=== PATIENT | male | born 1965 | race Caucasian/White ===

== ENCOUNTER 2019-07-26 07:45 | Emergency (ER) | payer OTHER ==
[~2019-07-26] VITALS: Ht 185.4 cm; Wt 104.3 kg
--- OUTSIDE RECORDS SUMMARY | ~2019-07-26 | XMS | Encounter Summary ---
Demographics + + + | Address | [address] | | | [place] [address] | + + + | Home Phone | | + + + | Preferred Language | Unknown | + + + | Marital Status | | + + + | Moravian Affiliation | Unknown | + + + | Race | Unknown | + + + | Ethnic Group | Unknown | + + + Author + + + | Author | [facility] | | | and [place] | + + + | Organization | [facility] | | | and [place] | + + + | Address | Unknown | + + + | Phone | Unavailable | + + + Support + + +---------+ + | Name | Relationship | Address | Phone | + + +---------+ + | Tiffany [place] | ECON | Unknown | | + + +---------+ + Care Team Providers + +------+ + | Care Medical Reception Name | Role | Phone | + +------+ + | Parth Vivas | PCP | | | MD | | | + +------+ + Encounter Details +--------+ + + + + | Date | Type | Department | Care Team | Description | +--------+ + + + + | 11/14/ | Orders Only | [facility] | Conversion | | | 2017 | | CONVERSION DEP [address] | Transaction, | | | | | [address] | Provider Unknown | | | | | [place] | | | | | | [phone] | (Fax) | | | | | [phone] | | | +--------+ + + + + Social History + +-------+ +--------+------+ | Tobacco Use | Types | Packs/Day | Years | Date | | | | | Used | | + +-------+ +--------+------+ | Never Assessed | | | | | + +-------+ +--------+------+ + + + | Sex Assigned at | Date Recorded | | | | + + + | Not on file | | + + + + + + + | Job Start Date | Occupation | Industry | + + + + | Not on file | Not on file | Not on file | + + + + + + + + | Travel History | Travel Start | Travel End | + + + + + + | No recent travel history available. | + + documented as of this encounter Plan of Treatment Not on filedocumented as of this encounter Visit Diagnoses Not on filedocumented in this encounter"
--- OUTSIDE RECORDS SUMMARY | ~2019-07-26 | XMS | Encounter Summary ---
Demographics + + + | Address | [address] | | | [place] [address] | + + + | Home Phone | | + + + | Preferred Language | Unknown | + + + | Marital Status | | + + + | Yazidism Affiliation | Unknown | + + + | Race | Unknown | + + + | Ethnic Group | Unknown | + + + Author + + + | Author | [facility] | | | and [place] | + + + | Organization | [facility] | | | and [...] Team Providers + +------+ + | Care Night Guard Name | Role | Phone | + +------+ + PCP | Unavailable | + +------+ + Encounter Details +--------+ + + + + | Date | Type | Department | Care Team | Description | +--------+ + + + + | 11/14/ | Hospital | [facility] | Conversion | Low back pain, | | 2017 | Encounter | [facility] | Transaction, | unspecified back | | | | [address] | Provider Unknown | pain laterality, | | | | [place], [place] | [phone] | unspecified | | | | [address] | | chronicity, with | | | | [phone] | Bryan Rainey DO | sciatica presence | | | | | [address] | unspecified | | | | | [place] [address] | | | | | | [phone] | | | | | | | | +--------+ + + + [...] + + documented as of this encounter Medications at Time of Discharge + + + +---------+ + + | Medication | Sig | Dispensed | Refills | Start | End Date | | | | | | Date | | + + + +---------+ + + | aspirin 81 MG | Take 81 mg by mouth | | 0 | 11/15/19 | | | tablet | daily. | | | 17 | | + + + +---------+ + + | metFORMIN | Take 750 mg by mouth | | 0 | 11/15/19 | | | (GLUCOPHAGE-XR) 750 | daily with dinner. | | | 17 | | | mg 24 hr tablet | | | | | | + + + +---------+ + + | | Take 1 tablet by | | 0 | 11/15/19 | | | olmesartan-hydrochlo | mouth daily. | | | 17 | | | rothiazide (BENICAR | | | | | | | HCT) 40-12.5 MG per | | | | | | | tablet | | | | | | + + + +---------+ + + documented as of this encounter Plan of Treatment Not on filedocumented as of this encounter Procedures + +--------+ + + + | Procedure Name | Priori | Date/Time | Associated Diagnosis | Comments | | | ty | | | | + +--------+ + + + | XR LUMBAR SPINE 2 OR | Routin | 11/14/2016 | | Results for this | | 3 VW | e | 4:46 PM | | procedure are in the | | | | PDT | | results section. | + +--------+ + + + documented in this encounter Results XR Lumbar Spine 2 or 3 Vw (11/14/2016 4:46 PM PDT) + + | Specimen | + + | | + + + + + | Impressions | Performed At | + + + | 1. 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 Correlate clinically | | + + + + + + | Narrative | Performed At | + + + | [facility] LUMBAR SPINE LIMITED 2-3 VIEW 11/14/2016 4:46 PM | | | HISTORY: 51 years. Male. Low back pain TECHNIQUE: XR | | | LUMBAR SPINE LIMITED 2-3 VIEW. Lateral view in flexion and extension. | | | Total of 2 images presented for interpretation. COMPARISON: | | | Images from an outside facility 09/14/2015 FINDINGS: Spondylolysis | | | and spondylolisthesis at the L5/S1 level again noted. Flexion = 23 mm. | | | Extension = 24 mm. The remainder of the lower thoracic and lumbar | | | spine as visualized have preservation of height and alignment. | | + + + + + | Procedure Note | + + | Romel Tran Conversion - 02/21/2019 4:29 AM PDT [facility] NAILS LUMBAR SPINE LIMITED | | 2-3 VIEW11/14/2016 4:46 PM HISTORY:51 years. Male. Low back pain TECHNIQUE:XR LUMBAR | | SPINE LIMITED 2-3 VIEW. Lateral view in flexion and extension. Total of 2 images | | presented for interpretation. COMPARISON:Images from an outside facility 09/14/2015 | | FINDINGS:Spondylolysis and spondylolisthesis at the L5/S1 level again noted. Flexion = | | 23 mm. Extension = 24 mm. The remainder of the lower thoracic and lumbar spine as | | visualized have preservation of height and alignment.IMPRESSION: 1. Spondylolysis with | | spondylolisthesis at the L5/S1 level with minimal interval change between the studies | | labeled flexion and extension. Correlate clinically | |COMPARISON: | |Images from an outside facility 09/14/2015 | | | |FINDINGS: | |Spondylolysis and spondylolisthesis at the L5/S1 level again noted. Flexion = 23 mm. Extens ion = 24 mm. The remainder of the lower thoracic and lumbar spine as visualized have preserv ation of height and alignment. | |IMPRESSION: | |1. 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 Correlate clinically | | | | | | | | | + + documented in this encounter Visit Diagnoses + + | Diagnosis | + + | Low back pain, unspecified back pain laterality, unspecified chronicity, with sciatica | | presence unspecified | + + documented in this encounter"
--- OUTSIDE RECORDS SUMMARY | ~2019-07-26 | XMS | Encounter Summary ---
Demographics + + + | Address | [address] | | | [place] [address] | + + + | Home Phone | | + + + | Preferred Language | Unknown | + + + | Marital Status | | + + + | Jain Affiliation | Unknown | + + + | Race | Unknown | + + + | Ethnic Group | Unknown | + + + Author + + + | Author | [facility] | | | and [place] | + + + | Organization | [facility] | | | and [...] Team Providers + +------+ + | Care Event Specialist Name | Role | Phone | + +------+ + PCP | Unavailable | + +------+ + Encounter Details +--------+ + + + + | Date | Type | Department | Care Team | Description | +--------+ + + + + | 01/05/ | Hospital | [facility] | Conversion | Acquired | | 2019 | Encounter | [facility] | Transaction, | spondylolisthesis of | | | | [address] | Provider Unknown | lumbosacral region | | | | [place], [place] | | | | | | [address] | (Fax) | | | | | [phone] | Herbert Borjas MD | | | | | | [address] | | | | | | [place], | | | | | | [place] [address] | | | | | | [phone] | | | | | | | | +--------+ + + + + Social History + +-------+ +--------+------+ | Tobacco Use | Types | Packs/Day | Years | Date | | | | | Used | | + +-------+ +--------+------+ | Former Smoker | | 0.25 | | | + +-------+ +--------+------+ + [...] + + + +---------+ + + | diazePAM (VALIUM) | /2 to 1 tab 30 | 4 | 0 | 11/16/19 | | | 10 MG tablet | minutes prior to MRI | tablet | | 19 | | | | scan. | | | | | + + + +---------+ + + | | Take 1 tablet by | | 0 | 11/14/19 | | | losartan-hydrochloro | mouth daily. | | | 18 | | | thiazide (HYZAAR) | | | | | | | 100-12.5 MG per | | | | | [...] + + + +---------+ + + | traMADol (ULTRAM) | Take 1 tablet by | 60 | 2 | 11/16/19 | | | 50 mg tablet | mouth 2 (two) times | tablet | | 19 | | | | daily. | | | | | + + + +---------+ + + | gabapentin | Take 1 capsule by | 90 | 5 | 11/16/19 | | | (NEURONTIN) 300 mg | mouth 2 (two) times | capsule | | 19 | 9 | | capsule | daily. | | | | | + + + +---------+ + + | traMADol (ULTRAM) | Take 1 tablet by | 120 | 0 | 12/31/19 | | | 50 mg tablet | mouth every 6 (six) | tablet | | 17 | 9 | | | hours as needed for | | | | | | | Pain. | | | | | + + + +---------+ + + documented as of this encounter Plan of Treatment Not on filedocumented as of this encounter Procedures + +--------+ + + + | Procedure Name | Priori | Date/Time | Associated Diagnosis | Comments | | | ty | | | | + +--------+ + + + | MRI LUMBAR SPINE WO | Routin | 01/05/2019 | | Results for this | | CONTRAST | e | 10:43 AM | | procedure are in the | | | | PDT | | results section. | + +--------+ + + + documented in this encounter Results MRI Lumbar Spine wo Contrast (01/05/2019 10:43 AM PDT) + + | Specimen | + + | | + + + + + | Impressions | Performed At | + + + | 1. Bilateral L5 pars defects. Anterolisthesis of L5 on S1 | | | measuring 1.3 cm. 2. Severe neural foraminal narrowing at bilateral | | | L5-S1. 3. No significant spinal canal stenosis. 4. Other findings as | | | described. Signed by: Leopoldo Broussard, Sinan Sign Date/Time: 01/05/2019 | | | 3:00 PM | | + + + + + + | Narrative | Performed At | + + + | MRI LUMBAR SPINE WITHOUT CONTRAST CLINICAL INFORMATION: Low back | | | pain radiating into right leg. COMPARISON: 01/05/2018 PROCEDURE: | | | Sagittal T2, axial T2, sagittal T1, axial T1, sagittal STIR sequences. | | | FINDINGS: Conus and imaged portions of the caudal cord: No abnormal | | | signal of the terminal spinal cord. Lumbar disc levels: T11-T12 | | | through L2-L3 levels are unremarkable with no spinal canal stenosis | | | or neural foraminal stenosis. L3-4: Mild posterior broad-based disc | | | protrusion. No spinal canal stenosis. No neural foraminal | | | stenosis. Facet joints are normal. L4-5: Intervertebral disc | | | desiccation. Broad-based posterior disc protrusion. No spinal | | | canal stenosis. Bilateral mild neural foraminal narrowing. L5-S1: | | | Advanced disc degeneration at the L5-S1 level. There is | | | anterolisthesis of L5 on S1 measuring 1.3 cm. Bilateral severe | | | neural foraminal narrowing. Degenerative endplate edema. | | | Bilateral L5 pars defects. | | + + + + + | Procedure Note | + + | Marc, Rad Conversion - 02/19/2019 11:54 PM PDT MRI LUMBAR SPINE WITHOUT CONTRAST | | CLINICAL INFORMATION: | | Low back pain radiating into right leg. | | COMPARISON: | | 01/05/2018 | | PROCEDURE: | | Sagittal T2, axial T2, sagittal T1, axial T1, sagittal STIR sequences. | | FINDINGS: | | Conus and imaged portions of the caudal cord: No abnormal signal of the | | terminal spinal cord. | | Lumbar disc levels: | | T11-T12 through L2-L3 levels are unremarkable with no spinal canal | | stenosis or neural foraminal stenosis. | | L3-4: Mild posterior broad-based disc protrusion. No spinal canal | | stenosis. No neural foraminal stenosis. Facet joints are normal. | | L4-5: Intervertebral disc desiccation. Broad-based posterior disc | | protrusion. No spinal canal stenosis. Bilateral mild neural foraminal | | narrowing. | | L5-S1: Advanced disc degeneration at the L5-S1 level. There is | | anterolisthesis of L5 on S1 measuring 1.3 cm. Bilateral severe neural | | foraminal narrowing. Degenerative endplate edema. Bilateral L5 pars | | defects. | | IMPRESSION: | | 1. Bilateral L5 pars defects. Anterolisthesis of L5 on S1 measuring | | 1.3 cm. | | 2. Severe neural foraminal narrowing at bilateral L5-S1. | | 3. No significant spinal canal stenosis. | | 4. Other findings as described. | | Signed by: Leopoldo Broussard, Sinan | | Sign Date/Time: 01/05/2019 3:00 PM | + + documented in this encounter Visit Diagnoses + + | Diagnosis | + + | Acquired spondylolisthesis of lumbosacral region Acquired spondylolisthesis | + + documented in this encounter"
--- OUTSIDE RECORDS SUMMARY | ~2019-07-26 | XMS | Encounter Summary ---
Demographics + + + | Address | [address] | | | [place] [address] | + + + | Home Phone | | + + + | Preferred Language | Unknown | + + + | Marital Status | | + + + | Alevism Affiliation | Unknown | + + + | Race | Unknown | + + + | Ethnic Group | Unknown | + + + Author + + + | Author | [facility] | | | and [place] | + + + | Organization | [facility] | | | [...] Team Providers + +------+ + | Care Soil Technician Name | Role | Phone | + +------+ + PCP | Unavailable | + +------+ + Encounter Details +--------+ + + + + | Date | Type | Department | Care Team | Description | +--------+ + + + + | 01/05/ | Hospital | [facility] | Conversion | Lumbar | | 2018 | Encounter | [facility] [address] | Transaction, | radiculopathy; Pars | | | | [address] | Provider Unknown | defect of lumbar | | | | [place], [place] | [phone] | spine; | | | | [address] | | Spondylolisthesis of | | | | [phone] | Danish Mcintyre ARNP | lumbar region | | | | | [address] [facility] | | | | | | B [place], [place] | | | | | | [address] | | | | | | | [...] | + +--------+ + + + | CT LUMBAR SPINE WO | Routin | 01/05/2018 | | Results for this | | CONTRAST | e | 3:32 PM | | procedure are in the | | | | PDT | | results section. | + +--------+ + + + documented in this encounter Results CT Lumbar Spine wo Contrast (01/05/2018 3:32 PM PDT) + + | Specimen | + + | | + + + + + | Impressions | Performed At | + + + | 1. Bilateral L5 pars defects with grade 2 (12 mm) anterolisthesis | | | of L5 on S1 and advanced disc degeneration. Severe bilateral L5-S1 | | | neural foraminal stenosis with probable impingement of exiting L5 | | | nerve roots bilaterally. 2. Grade 1 (5 mm) retrolisthesis of L4 on | | | L5. Moderate bilateral L4-L5 neural foraminal stenosis. 3. Fusiform | | | infrarenal abdominal aortic aneurysm with maximum diameter measuring | | | 2.8 x 2.7 cm. Recommend attention on follow-up imaging with ultrasound | | | in 3 years. 4. Small bilateral adrenal nodules, incompletely | | | characterized, possible adenomas. Correlate for history of known | | | malignancy. Adrenal protocol MRI can be considered for further | | | evaluation. 5. Small (3 mm) nonobstructive right renal stone. | | | | | + + + + + + | Narrative | Performed At | + + + | [facility] Quiroga [facility] CT LUMBAR SPINE WO CONTRAST 01/05/2018 3:32 PM | | | HISTORY: 52 years. Male. Back pain. Spondylolisthesis. | | | TECHNIQUE: Axial 1.25-mm noncontrast images were acquired from T11-12 | | | through the sacrum. Coronal and sagittal reconstructions were | | | performed. Dose reduction techniques were used including automated | | | exposure control (AEC), iterative reconstruction technique, and/or | | | mA and/or kV dose adjustments based on patient size. | | | COMPARISON: MRI dated 11/14/2016. FINDINGS: No acute fracture. | | | Chronic posterior wedging of L5 vertebral body. Bilateral L5 pars | | | defects with grade 2 (12 mm) anterolisthesis of L5 on S1. Grade 1 (5) | | | retrolisthesis of L4 on L5. T11-12: Small Schmorl nodes. Small | | | right foraminal disc protrusion with mild right neural foraminal | | | stenosis. The right neural foramen is incompletely imaged. No spinal | | | canal or left neural foraminal stenosis. T12-L1: No spinal canal | | | or neural foraminal stenosis. L1-L2: No spinal canal or neural | | | foraminal stenosis. L2-L3: No spinal canal or neural foraminal | | | stenosis. L3-L4: Mild bilateral facet joint osteoarthritis. Mild | | | diffuse disc bulge. Mild spinal canal and mild bilateral neural | | | foraminal stenosis. L4-L5: Mildly decreased intervertebral disc | | | height. Mild diffuse disc bulge. Bilateral facet joint osteoarthritis. | | | Minimal spinal stenosis. Moderate bilateral neural foraminal | | | stenosis. L5-S1: Advanced disc degeneration with disc height loss | | | and vacuum disc. No spinal canal stenosis. Severe bilateral neural | | | foraminal stenosis. Bilateral facet joint osteoarthritis. | | | Aortobiiliac atherosclerosis. Fusiform infrarenal abdominal aortic | | | aneurysm with maximum diameter measuring approximately 2.8 x 2.7 cm. | | | Left adrenal nodule measuring approximately 1.4 x 1.1 cm, | | | incompletely characterized. Nodular thickening of right adrenal gland. | | | Small right adrenal nodule measuring approximately 8 x 9 mm, image | | | 8/series 2, incompletely catheterized. Small (3 mm) | | | nonobstructive stone in upper pole of the right kidney. | | + + + + + | Procedure Note | + + | Marc, Rad Conversion - 02/20/2019 12:51 PM PDT MARCELINA A TASSIECT LUMBAR SPINE WO | | CONTRAST01/05/2018 3:32 PM HISTORY:52 years. Male. Back pain. Spondylolisthesis. | | TECHNIQUE:Axial 1.25-mm noncontrast images were acquired from T11-12 through the sacrum. | | Coronal and sagittal reconstructions were performed. Dose reduction techniques were | | used including automated exposure control (AEC), iterative reconstruction technique, | | and/or mA and/or kV dose adjustments based on patient size. COMPARISON:MRI dated | | 11/14/2016. FINDINGS:No acute fracture. Chronic posterior wedging of L5 vertebral body. | | Bilateral L5 pars defects with grade 2 (12 mm) anterolisthesis of L5 on S1. Grade 1 (5) | | retrolisthesis of L4 on L5. T11-12: Small Schmorl nodes. Small right foraminal disc | | protrusion with mild right neural foraminal stenosis. The right neural foramen is | | incompletely imaged. No spinal canal or left neural foraminal stenosis. T12-L1: No | | spinal canal or neural foraminal stenosis. L1-L2: No spinal canal or neural foraminal | | stenosis. L2-L3: No spinal canal or neural foraminal stenosis. L3-L4: Mild bilateral | | facet joint osteoarthritis. Mild diffuse disc bulge. Mild spinal canal and mild | | bilateral neural foraminal stenosis. L4-L5: Mildly decreased intervertebral disc height. | | Mild diffuse disc bulge. Bilateral facet joint osteoarthritis. Minimal spinal stenosis. | | Moderate bilateral neural foraminal stenosis. L5-S1: Advanced disc degeneration with | | disc height loss and vacuum disc. No spinal canal stenosis. Severe bilateral neural | | foraminal stenosis. Bilateral facet joint osteoarthritis. Aortobiiliac atherosclerosis. | | Fusiform infrarenal abdominal aortic aneurysm with maximum diameter measuring | | approximately 2.8 x 2.7 cm. Left adrenal nodule measuring approximately 1.4 x 1.1 cm, | | incompletely characterized. Nodular thickening of right adrenal gland. Small right | | adrenal nodule measuring approximately 8 x 9 mm, image 8/series 2, incompletely | | catheterized. Small (3 mm) nonobstructive stone in upper pole of the right kidney. | | IMPRESSION: 1. Bilateral L5 pars defects with grade 2 (12 mm) anterolisthesis of L5 on | | S1 and advanced disc degeneration. Severe bilateral L5-S1 neural foraminal stenosis with | | probable impingement of exiting L5 nerve roots bilaterally.2. Grade 1 (5 mm) | | retrolisthesis of L4 on L5. Moderate bilateral L4-L5 neural foraminal stenosis.3. | | Fusiform infrarenal abdominal aortic aneurysm with maximum diameter measuring 2.8 x 2.7 | | cm. Recommend attention on follow-up imaging with ultrasound in 3 years.4. Small | | bilateral adrenal nodules, incompletely characterized, possible adenomas. Correlate for | | history of known malignancy. Adrenal protocol MRI can be considered for further | | evaluation.5. Small (3 mm) nonobstructive right renal stone. | |Aortobiiliac atherosclerosis. Fusiform infrarenal abdominal aortic aneurysm with maximum di ameter measuring approximately 2.8 x 2.7 cm. | | | |Left adrenal nodule measuring approximately 1.4 x 1.1 cm, incompletely characterized. Nodul ar thickening of right adrenal gland. Small right adrenal nodule measuring approximately 8 x 9 mm, image 8/series 2, incompletely catheterized. | | | | | |Small (3 mm) nonobstructive stone in upper pole of the right kidney. | | | |IMPRESSION: | |1. Bilateral L5 pars defects with grade 2 (12 mm) anterolisthesis of L5 on S1 and advanced disc degeneration. Severe bilateral L5-S1 neural foraminal stenosis with probable impingeme nt of exiting L5 nerve roots bilaterally. | |2. Grade 1 (5 mm) retrolisthesis of L4 on L5. Moderate bilateral L4-L5 neural foraminal st enosis. | |3. Fusiform infrarenal abdominal aortic aneurysm with maximum diameter measuring 2.8 x 2.7 cm. Recommend attention on follow-up imaging with ultrasound in 3 years. | |4. Small bilateral adrenal nodules, incompletely characterized, possible adenomas. Correla te for history of known malignancy. Adrenal protocol MRI can be considered for further evalu ation. | |5. Small (3 mm) nonobstructive right renal stone. | | | | | + + documented in this encounter Visit Diagnoses + + | Diagnosis | + + | Lumbar radiculopathy Thoracic or lumbosacral neuritis or radiculitis, unspecified | + + | Pars defect of lumbar spine Acquired spondylolisthesis | + + | Spondylolisthesis of lumbar region Acquired spondylolisthesis | + + documented in this encounter"
--- OUTSIDE RECORDS SUMMARY | ~2019-07-26 | XMS | Encounter Summary ---
Demographics + + + | Address | [address] | | | [place] [address] | + + + | Home Phone | | + + + | Preferred Language | Unknown | + + + | Marital Status | | + + + | Orthodoxy Affiliation | Unknown | + + + | Race | Unknown | + + + | Ethnic Group | Unknown | + + + Author + + + | Author | [facility] | | | and [place] | + + + | Organization | [facility] | | | [...] Team Providers + +------+ + | Care Catering Driver Name | Role | Phone | + +------+ + | Parth Vivas PCP | | | MD | | | + +------+ + Reason for Visit + + + | Reason | Comments | + + + | Medication Refill | | + + + | Medication Refill | | + + + Encounter Details +--------+--------+ + + + | Date | Type | Department | Care Team | Description | +--------+--------+ + + + | 04/05/ | Refill | [facility] | Herbert Borjas MD | Medication Refill; | | 2019 | | [facility] | [address] | Medication Refill | | | | ORTHOPEDIC SPINE | [place], | | | | | [address] [place] | [place] [address] | | | | | [place] | [phone] | | | | | [address] | | | | | | [phone] | | | +--------+--------+ + + + Social History + +-------+ [...]
--- OUTSIDE RECORDS SUMMARY | ~2019-07-26 | XMS | Encounter Summary ---
Demographics + + + | Address | [address] | | | [place] [address] | + + + | Home Phone | | + + + | Preferred Language | Unknown | + + + | Marital Status | | + + + | Church Affiliation | Unknown | + + + | Race | Unknown | + + + | Ethnic Group | Unknown | + + + Author + + + | Author | [facility] | | | and [place] | + + + | Organization | [facility] | | | and [...] Team Providers + +------+ + | Care Surveillance Sensor Operator Name | Role | Phone | + +------+ + | Parth Vivas | PCP | | | MD | | | + +------+ + Encounter Details +--------+ + + + + | Date | Type | Department | Care Team | Description | +--------+ + + + + | 12/26/ | Orders Only | [facility] | Conversion | | | 2018 | | CONVERSION DEP 888 | Transaction, | | | | | ERICA JOSHUAVD | Provider Unknown | | | | | [place] | [phone] | | | | | [phone] | (Fax) | | | | | [phone] | | | +--------+ + + + [...]
--- OUTSIDE RECORDS SUMMARY | ~2019-07-26 | XMS | Clinical Summary ---
Demographics + + + | Address | [address] | | | [place] [address] | + + + | Home Phone | | + + + | Preferred Language | Unknown | + + + | Marital Status | | + + + | Yazdanism Affiliation | Unknown | + + + | Race | Unknown | + + + | Ethnic Group | Unknown | + + + Author + + + | Author | [facility] (Historical as of | | | 02-23-19) | + + + | Organization | [facility] (Historical as of | | | 02-23-19) | + + + | Address | Unknown | + + + | Phone | Unavailable | + + + Support + + +---------+ + | Name | Relationship | Address | Phone | + + +---------+ + | Tiffany Vickers | ECON | Unknown | | + + +---------+ + Care Team Providers + +------+ + | Care Janitor And Cleaner Name | Role | Phone | + +------+ + | Parth Vivas MD | PP | | + +------+ + Allergies No Known Allergies Current Medications + + +---------+---------+------+------+-------+ | Prescription | Sig. | Disp. | Refills | Star | End | Statu | | | | | | t | Date | s | | | | | | Date | | | + + +---------+---------+------+------+-------+ | | Take 1 tablet by | | | | | Activ | | olmesartan-hydrochlo | mouth daily. | | | | | e | | rothiazide (BENICAR | | | | | | | | HCT) 40-12.5 MG per | | | | | | | | tablet | | | | | | | + + +---------+---------+------+------+-------+ | metFORMIN | Take 750 mg by mouth | | | | | Activ | | (GLUCOPHAGE-XR) 750 | daily with dinner. | | | | | e | | MG 24 hr tablet | | | | | | | + + +---------+---------+------+------+-------+ | aspirin 81 MG | Take 81 mg by mouth | | | | | Activ | | tablet | daily. | | | | | e | + + +---------+---------+------+------+-------+ | traMADol (ULTRAM) | Take 1 tablet by | 120 | 0 | 06/2 | | Activ | | 50 MG | mouth every 6 (six) | tablet | | 3/20 | | e | | tabletIndications: | hours as needed for | | | 17 | | | | Acquired | Pain. | | | | | | | spondylolisthesis of | | | | | | | | lumbosacral region | | | | | | | + + +---------+---------+------+------+-------+ | | Take 1 tablet by | | | 05/0 | | Activ | | losartan-hydrochloro | mouth daily. | | | 7/20 | | e | | thiazide (HYZAAR) | | | | 18 | | | | 100-12.5 MG per | | | | | | | | tablet | | | | | | | + + +---------+---------+------+------+-------+ | traMADol (ULTRAM) | Take 1 tablet by | 60 | 2 | 05/0 | | Activ | | 50 MG | mouth 2 (two) times | tablet | | 9/20 | | e | | tabletIndications: | daily. | | | 19 | | | | Spondylolisthesis, | | | | | | | | lumbar region, Pars | | | | | | | | defect of lumbar | | | | | | | | spine | | | | | | | + + +---------+---------+------+------+-------+ | gabapentin | Take 1 capsule by | 90 | 5 | 05/0 | | Activ | | (NEURONTIN) 300 MG | mouth 2 (two) times | capsule | | 9/20 | | e | | capsule | daily. | | | 19 | | | + + +---------+---------+------+------+-------+ | diazePAM (VALIUM) | 2 to 30 | 4 | 0 | 05/0 | | Activ | | 10 MG tablet | minutes prior to MRI | tablet | | 03/29 | | e | | | scan. | | | 19 | | | + + +---------+---------+------+------+-------+ Active Problems + + + | Problem | Noted Date | + + + | Lumbar stenosis with neurogenic claudication | 04/12/2019 | + + + | Lumbar radiculopathy | 01/31/2017 | + + + | Pars defect of lumbar spine | 01/31/2017 | + + + | Spondylolisthesis, lumbar region | 01/31/2017 | + + + Social History + +-------+ +--------+ + | Tobacco Use | Types | Packs/Day | Years | Date | | | | | Used | | + +-------+ +--------+ + | Former Smoker | | 0.25 | | Quit: 07/24/2017 | + +-------+ +--------+ + + +---+---+---+ | Smokeless Tobacco: | | | | | Former User | | | | + +---+---+---+ + + +---------+ + | Alcohol Use | Drinks/We | oz/Week | Comments | | | ek | | | + + +---------+ + | No | | | | + + +---------+ + + + + | Sex Assigned at | Date Recorded | | | | + + + | Not on file | | + + + Last Filed Vital Signs + + + + | Vital Sign | Reading | Time Taken | + + + + | Blood Pressure | 158/95 | 01/31/2019 9:38 AM PDT | + + + + | Pulse | 61 | 01/31/2019 9:38 AM PDT | + + + + | Temperature | 37.2 C (98.9 F) | 11/14/2016 3:40 PM PDT | + + + + | Respiratory Rate | 16 | 11/14/2016 4:34 PM PDT | + + + + | Oxygen Saturation | 95% | 11/14/2016 4:34 PM PDT | + + + + | Inhaled Oxygen | - | - | | Concentration | | | + + + + | Weight | 102.1 kg (225 lb) | 01/31/2019 9:38 AM PDT | + + + + | Height | 182.9 cm (6') | 01/31/2019 9:38 AM PDT | + + + + | Body Mass Index | 30.52 | 01/31/2019 9:38 AM PDT | + + + + Plan of Treatment + + + + + | Health Maintenance | Due Date | Last Done | Comments | + + + + + | Vaccine: | | | | | Dtap/Tdap/Td (1 - | 5 | | | | Tdap) | | | | + + + + + | Colon Cancer | | | | | Screening | 6 | | | | (Colonoscopy) | | | | + + + + + | Vaccine: Zoster (1 | | | | | of 2) | 6 | | | + + + + + | Vaccine: Influenza | | | | | (#1) | 9 | | | + + + + + Results Not on filefrom Last 3 Months Insurance + +--------+ +------+-------+---------+ | Payer | Benefi | Subscriber | Type | Phone | Address | | | t Plan | ID | | | | | | / | | | | | | | Group | | | | | + +--------+ +------+-------+---------+ | [employer] | [employer] | [id number] | | | | | | WORK | | | | | + +--------+ +------+-------+---------+ + +--------+ +--------+ + + | Guarantor Name | Accoun | Relation to | Date | Phone | Billing Address | | | t Type | Patient | of | | | | | | | | | | + +--------+ +--------+ + + | MARCELINA VICKERS | Person | Self [birth year] | Home: | [address] | | | al/Fam | | 1965 | [phone] [place] [address] | | | nena | | | [phone] | | + +--------+ +--------+ + +"
--- OUTSIDE RECORDS SUMMARY | ~2019-07-26 | XMS | Encounter Summary ---
Demographics + + + | Address | [address] | | | [place] [address] | + + + | Home Phone | | + + + | Preferred Language | Unknown | + + + | Marital Status | | + + + | Nondenominational Affiliation | Unknown | + + + | Race | Unknown | + + + | Ethnic Group | Unknown | + + + Author + + + | Author | [facility] | | | and [place] | + + + | Organization | [facility] | | | and [...] Team Providers + +------+ + | Care Clay Digger Name | Role | Phone | + +------+ + PCP | Unavailable | + +------+ + Encounter Details +--------+ + + + + | Date | Type | Department | Care Team | Description | +--------+ + + + + | 11/14/ | Hospital | [facility] | Conversion | Low back pain, | | 2017 | Encounter | [facility] | Transaction, | unspecified back | | | | [address] | Provider Unknown | pain laterality, | | | | [place] | [phone] | unspecified | | | | [address] | | chronicity, with | | | | [phone] | | sciatica presence | | | | | | unspecified | +--------+ + + + + Social [...] + + documented as of this encounter Progress Notes Conversion Transaction, Provider Unknown - 11/14/2016 4:34 PM PDTFormatting of this note m ight be different from the original. Nurse Progress Note by Rocio Grigsby RN at 11/14/16 1478 Author: Rocio Grigsby RN Service: (none) Author Type: Registered Nurse Filed: 11/14/16 7187 Date of Service: 11/14/161633 Status: Signed Routing Clerk: Rocio Grigsby RN (Registered Nurse) Pt tolerated procedure well, vss throughout. Pt tolerating juice post procedure, no nausea or vomiting. Pt and givne d/c instructions prior to sedation. No questions or concerns regarding instructions. Pt given 2mg versed and 50mcg fentanyl intra procedure. Pt states re adiness to leave. Pt d/c home in no observed or stated distress. docume nted in this encounter Plan of Treatment Not on filedocumented as of this encounter Procedures + +--------+ + + + | Procedure Name | Priori | Date/Time | Associated Diagnosis | Comments | | | ty | | | | + +--------+ + + + | MRI LUMBAR SPINE WO | Routin | 11/14/2016 | | Results for this | | CONTRAST | e | 4:43 PM | | procedure are in the | | | | PDT | | results section. | + +--------+ + + + documented in this encounter Results MRI Lumbar Spine wo Contrast (11/14/2016 4:43 PM PDT) + + | Specimen | + + | | + + + + + | Impressions | Performed At | + + + | 1. Grade 2 anterior spondylolisthesis of L5 on S1 from bilateral | | | pars defects of L5. 2. Severe bilateral neural foraminal narrowing | | | at L5-S1. Correlate for possible impingement exiting bilateral L5 | | | nerve roots. Electronically signed by Toni Azul DO on | | | 11/14/2016 5:08 PM | | + + + + + + | Narrative | Performed At | + + + | [facility] 1965 51 years Male MRI LUMBAR SPINE WO | | | CONTRAST 11/14/2016 4:43 PM HISTORY: Low back pain COMPARISON: | | | Lumbar spine x-ray dated 11/14/2016 and MRI lumbar spine dated 09/09/2015 | | | TECHNIQUE: Imaging was performed on a 1.5 Jeana MRI system. | | | Multiplanar sequences according to a standard department protocol | | | were acquired without contrast. FINDINGS: Anterior | | | spondylolisthesis of L5 on S1 measuring 14 mm. Mild retrolisthesis of | | | L4 on L5 measuring 3 mm. Bilateral pars defects of L5. The vertebral | | | heights are maintained. No focal worrisome marrow signal abnormality. | | | Findings by level: L1-L2: Negative. L2-L3: Negative. | | | L3-L4: Tiny Schmorl's nodes without associated bone marrow edema. No | | | disc herniation or central canal stenosis. L4-L5: Mild | | | retrolisthesis of L4 on L5 with moderate bilateral degenerative facet | | | disease causing moderate bilateral neural foraminal narrowing. No | | | central canal stenosis. L5-S1: Anterior spondylolisthesis of L5 on | | | S1 from bilateral pars defects of L5 causing severe bilateral neural | | | foraminal narrowing. Correlate for possible impingement exiting | | | bilateral L5 nerve roots. No central canal stenosis. | | + + + + + | Procedure Note | + + | Marc, Rad Conversion - 02/21/2019 4:29 AM PDT [facility]1965 51 years MaleMRI | | LUMBAR SPINE WO CONTRAST11/14/2016 4:43 PM HISTORY: Low back pain COMPARISON: Lumbar | | spine x-ray dated 11/14/2016 and MRI lumbar spine dated 09/09/2015 TECHNIQUE: Imaging was | | performed on a 1.5 Jeana MRI system. Multiplanar sequences according to a standard | | department protocol were acquired without contrast. FINDINGS: Anterior | | spondylolisthesis of L5 on S1 measuring 14 mm. Mild retrolisthesis of L4 on L5 measuring | | 3 mm. Bilateral pars defects of L5. The vertebral heights are maintained. No focal | | worrisome marrow signal abnormality. Findings by level: L1-L2: Negative. L2-L3: | | Negative. L3-L4: Tiny Schmorl's nodes without associated bone marrow edema. No disc | | herniation or central canal stenosis. L4-L5: Mild retrolisthesis of L4 on L5 with | | moderate bilateral degenerative facet disease causing moderate bilateral neural | | foraminal narrowing. No central canal stenosis. L5-S1: Anterior spondylolisthesis of L5 | | on S1 from bilateral pars defects of L5 causing severe bilateral neural foraminal | | narrowing. Correlate for possible impingement exiting bilateral L5 nerve roots. No | | central canal stenosis. IMPRESSION: 1. Grade 2 anterior spondylolisthesis of L5 on S1 | | from bilateral pars defects of L5.2. Severe bilateral neural foraminal narrowing at | | L5-S1. Correlate for possible impingement exiting bilateral L5 nerve roots. | | | |L2-L3: Negative. | | | |L3-L4: Tiny Schmorl's nodes without associated bone marrow edema. No disc herniation or santiago tral canal stenosis. | | | |L4-L5: Mild retrolisthesis of L4 on L5 with moderate bilateral degenerative facet disease c ausing moderate bilateral neural foraminal narrowing. No central canal stenosis. | | | |L5-S1: Anterior spondylolisthesis of L5 on S1 from bilateral pars defects of L5 causing sev ere bilateral neural foraminal narrowing. Correlate for possible impingement exiting bilater al L5 nerve roots. No central canal stenosis. | | | |IMPRESSION: | |1. Grade 2 anterior spondylolisthesis of L5 on S1 from bilateral pars defects of L5. | |2. Severe bilateral neural foraminal narrowing at L5-S1. Correlate for possible impingemen t exiting bilateral L5 nerve roots. | | | | | + + documented in this encounter Visit Diagnoses + + | Diagnosis | + + | Low back pain, unspecified back pain laterality, unspecified chronicity, with sciatica | | presence unspecified | + + documented in this encounter"
--- OUTSIDE RECORDS SUMMARY | ~2019-07-26 | XMS | Encounter Summary ---
Demographics + + + | Address | [address] | | | [place] [address] | + + + | Home Phone | | + + + | Preferred Language | Unknown | + + + | Marital Status | | + + + | Latter-Day Affiliation | Unknown | + + + | Race | Unknown | + + + | Ethnic Group | Unknown | + + + Author + + + | Author | [facility] | | | and [place] | + + + | Organization | [facility] | | | [...] Team Providers + +------+ + | Care Pigs Feet Cleaner Name | Role | Phone | + +------+ + PCP | Unavailable | + +------+ + Encounter Details +--------+ + + + + | Date | Type | Department | Care Team | Description | +--------+ + + + + | 11/14/ | Hospital | [facility] | Conversion | Low back pain, | | 2017 | Encounter | [facility] | Transaction, | unspecified back | | | | [address] | Provider Unknown | pain laterality, | | | | [place] | [phone] | unspecified | | | | [address] | | chronicity, with | | | | [phone] | | sciatica presence | | | [...] Note by Rocio Grigsby RN at 11/14/16 6143 Author: Rocio Grigsby RN Service: (none) Author Type: Registered Nurse Filed: 11/14/16 4818 Date of Service: 11/14/161633 Status: Signed Project Drilling Engineer: Rocio Grigsby RN (Registered Nurse) Pt tolerated [...]
--- OUTSIDE RECORDS SUMMARY | ~2019-07-26 | XMS | Encounter Summary ---
Demographics + + + | Address | [address] | | | [place] [address] | + + + | Home Phone | | + + + | Preferred Language | Unknown | + + + | Marital Status | | + + + | Baptist Affiliation | Unknown | + + + | Race | Unknown | + + + | Ethnic Group | Unknown | + + + Author + + + | Author | [facility] | | | and [place] | + + + | Organization | [facility] | | | and [...] Team Providers + +------+ + | Care Sonoscope Operator Name | Role | Phone | [...] + + | 04/05/ | Refill | [facility] | Herbert Borjas MD | Medication Refill; | | 2019 | | [facility] | [address] | Medication Refill | | | | ORTHOPEDIC SPINE | [place], | | | | | [address] [place] | [place] [address] | | | | | [place] | [phone] | | | | | [address] | | | | | | [phone] | | | +--------+--------+ + + + [...]
--- OUTSIDE RECORDS SUMMARY | ~2019-07-26 | XMS | Encounter Summary ---
Demographics + + + | Address | [address] | | | [place] [address] | + + + | Home Phone | | + + + | Preferred Language | Unknown | + + + | Marital Status | | + + + | Muslim Affiliation | Unknown | + + + | Race | Unknown | + + + | Ethnic Group | Unknown | + + + Author + + + | Author | [facility] | | | and [place] | + + + | Organization | [facility] | | | and [...] Team Providers + +------+ + | Care Photoengraving Photographer Name | Role | Phone | + +------+ + | Parth Vivas PCP | | | MD | | | + +------+ + Reason for Visit + + + | Reason | Comments | + + + | Follow-up | medication refill, discuss sx | + + + Encounter Details +--------+---------+ + + + | Date | Type | Department | Care Team | Description | +--------+---------+ + + + | 04/12/ | Office | [facility] | Danish Mcintyre ARNP | Pars defect with | | 2019 | Visit | [facility] | [address] | spondylolisthesis | | | | ORTHOPEDIC SPINE | [address] [facility] | (Primary Dx); | | | | [address] | [place] [address] | Spondylolisthesis of | | | | [place] | [phone] | lumbar region | | | | [address] | | | | | | [phone] | | | +--------+---------+ + + + Social History + +-------+ +--------+------+ | Tobacco Use | Types | Packs/Day | Years | Date | | | | | Used | | + +-------+ +--------+------+ | Former Smoker | | 0.25 | | | + +-------+ +--------+------+ + +---+---+---+ | Smokeless Tobacco: | | | | | Never Used | | | | + +---+---+---+ + + + | Sex Assigned at [...] + + documented as of this encounter Last Filed Vital Signs + + + + + | Vital Sign | Reading | Time Taken | Comments | + + + + + | Blood Pressure | 152/104 | 04/12/2019 10:12 AM | | | | | PDT | | + + + + + | Pulse | 66 | 04/12/2019 10:12 AM | | | | | PDT | | + + + + + | Temperature | - | - | | + + + + + | Respiratory Rate | - | - | | + + + + + | Oxygen Saturation | - | - | | + + + + + | Inhaled Oxygen | - | - | | | Concentration | | | | + + + + + | Weight | 100.2 kg (221 lb) | 04/12/2019 10:12 AM | | | | | PDT | | + + + + + | Height | 182.9 cm (6') | 04/12/2019 10:12 AM | | | | | PDT | | + + + + + | Body Mass Index | 29.97 | 04/12/2019 10:12 AM | | | | | PDT | | + + + + + documented in this encounter Progress Notes Mick Draek, Airfield Operations Specialist - 04/12/2019 10:00 AM PDTFormatting of this note might b e different from the original. Subjective: Chief Complaint: Right more than left leg pain Has a known Grad 2/3 L5-S1 spondy with progressive pain and disability. Discuss sx and medication refill HPI: Mr. [place] returns clinic to discuss potential role of surgery. Previously discussed an anterior lumbar interbody fusion approach to address the pars defect at the L5-S1. Surge ry was postponed mainly because he was building a house/project. This is towards the end of his project and would like to proceed with surgery sometime around early 2019. Patient eneida alvarez to have persistent right more than left leg pain where he has to take narcotics on a daily basis. Patient has also tried physical therapy as well as previous epidural in the [facility] and has failed. Location: Bilateral lower extremity region Pain scale without medicine:7-8/10 Pain scale with medicine: 4-5/10 Description and location: Burning, throbbing, aching, sharp, stabbing with weakness and num bness Precipitating Factors: siting, standing, twisting Alleviating Factors:medication, ice Current pain medication: Tramadol and muscle relaxants Social History Occupational History Not on file Tobacco Use Smoking status: Former Smoker Packs/day: 0.25 Smokeless tobacco: Never Used Substance and Sexual Activity Alcohol use: Not on file Drug use: Not on file Comment: Drug use: No Sexual activity: Not on file Past Medical History: Diagnosis Date Back pain Diabetes mellitus (HCC) HTN (hypertension) Hyperlipidemia No past surgical history on file. Current Outpatient Medications: aspirin 81 MG tablet, Take 81 mg by mouth daily., Disp: , Rfl: diazePAM (VALIUM) 10 MG tablet, 1/2 to 1 tab 30 minutes prior to MRI scan., Disp: 4 t ablet, Rfl: 0 gabapentin (NEURONTIN) 300 mg capsule, Take 1 capsule by mouth 2 times daily., Disp: 9 0 capsule, Rfl: 5 losartan-hydrochlorothiazide (HYZAAR) 100-12.5 MG per tablet, Take 1 tablet by mouth d aily., Disp: , Rfl: metFORMIN (GLUCOPHAGE-XR) 750 mg 24 hr tablet, Take 750 mg by mouth daily with dinner. , Disp: , Rfl: olmesartan-hydrochlorothiazide (BENICAR HCT) 40-12.5 MG per tablet, Take 1 tablet by m outh daily., Disp: , Rfl: traMADol (ULTRAM) 50 mg tablet, Take 1 tablet by mouth every 6 hours as needed (Pain). , Disp: 120 tablet, Rfl: 3 traMADol (ULTRAM) 50 mg tablet, Take 1 tablet by mouth 2 (two) times daily., Disp: 60 tablet, Rfl: 2 No family history on file. Review of Systems Constitutional: Negative for activity change, appetite change, fatigue, fever and unexpecte d weight change. HENT: Negative for dental problem, drooling, ear pain, facial swelling, hearing loss, sinus pressure, sinus pain, sneezing, sore throat and trouble swallowing. Eyes: Negative for photophobia and visual disturbance. Respiratory: Negative for cough, choking and shortness of breath. Cardiovascular: Negative for palpitations and leg swelling. Gastrointestinal: Negative for abdominal distention, abdominal pain, blood in stool, consti pation, diarrhea, nausea, rectal pain and vomiting. Endocrine: Negative for cold intolerance and heat intolerance. Genitourinary: Negative for decreased urine volume, difficulty urinating, discharge, freque ncy, penile pain, penile swelling, scrotal swelling, testicular pain and urgency. Musculoskeletal: Positive for back pain, gait problem, joint swelling and myalgias. Negativ e for arthralgias, neck pain and neck stiffness. Skin: Negative for color change, rash and wound. Allergic/Immunologic: Negative for environmental allergies and food allergies. Neurological: Positive for weakness and numbness. Negative for dizziness, tremors, speech d ifficulty, light-headedness and headaches. Psychiatric/Behavioral: Negative for agitation, confusion, decreased concentration, dysphor ic mood and sleep disturbance. The patient is not nervous/anxious. Objective: BP (!) 152/104 | Pulse 66 | Ht 1.829 m (6') | Wt 100.2 kg (221 lb) | BMI 29.97 kg/m PE: HEENT: Unremarkable Chest: Clear Lumbar: Difficulty heel-to-toe walk right more than left with diminished rapid toe raises r ight more than left. Weakness was elicited over his right dorsiflexion and plantarflexion a t 4+/5 compared to 5-minute/5 on the left side. Markedly diminished sensation right S1 and right L5 distribution. Achilles reflex on the right was trace and 2+ on the left. IMAGING: Lumbar CT and MRI 2019 shows a pars defect at the L5-S1 with severe foraminal stenosis bila terally at L5-S1. Assessment: 1. Pars defect with spondylolisthesis 2. Spondylolisthesis of lumbar region Mr. [place] is a 54-year-old gentleman who has since stopped smoking completely back in 2018 and potential preparation for back surgery. He has significant amount of pars defect at th e L5-S1 associated with grade 2 almost grade 3 anterolisthesis with severe foraminal stenosi s. Recommendation is to address the problems via surgery in the form an anterior lumbar int erbody fusion approach at the L5-S1 followed by posterior fusion and decompression. We discussed the specific risks of the ALIF fusion procedure including bleeding, infection, injury to the nervous structures, csf leak, screw malposition, medical complications, pseud oarthrosis, DVT, worsened pain, adjacent level degeneration, need for further surgery, even . The procedure and its indications, the alternative treatment options including non-t reatment, the anticipated benefits of the procedure and alternatives, and the possible risks and complications of the procedure are addressed with the patient and all questions were an swered. Dr. Ishan Vilchis, Vascular surgeon who will assist with the anterior approach will evaluate Mr. [place] prior to surgery. The patient wishes to proceed with surgical intervent ion. Medications Placed This Encounter Medications gabapentin (NEURONTIN) 300 mg capsule Sig: Take 1 capsule by mouth 2 times daily. Dispense: 90 capsule Refill: 5 traMADol (ULTRAM) 50 mg tablet Sig: Take 1 tablet by mouth every 6 hours as needed (Pain). Dispense: 120 tablet Refill: 3 No orders of the defined types were placed in this encounter. Note: We spent approximately 25 minutes in [id number] time of which greater than 50% was involved in counseling/coordination of care discussing perioperative expectations and sabino ring/contrasting previous and past imaging studies. documented in this encounter Plan of Treatment Not on filedocumented as of this encounter Visit Diagnoses + + | Diagnosis | + + | Pars defect with spondylolisthesis - Primary | + + | Spondylolisthesis of lumbar region Acquired spondylolisthesis | + + documented in this encounter"
--- OUTSIDE RECORDS SUMMARY | ~2019-07-26 | XMS | Encounter Summary ---
Demographics + + + | Address | [address] | | | [place] [address] | + + + | Home Phone | | + + + | Preferred Language | Unknown | + + + | Marital Status | | + + + | Nondenominational Affiliation | Unknown | + + + | Race | Unknown | + + + | Ethnic Group | Unknown | + + + Author + + + | Author | [facility] | | | and [place] | + + + | Organization | [facility] | | | and [...] Team Providers + +------+ + | Care Interior Paneler Name | Role | Phone | + +------+ + PCP | Unavailable | + +------+ + Encounter Details +--------+ + + + + | Date | Type | Department | Care Team | Description | +--------+ + + + + | 09/27/ | Hospital | [facility] | Conversion | Pain | | 2016 | Encounter | CONVERSION DEP [address] | Transaction, | | | | | [address] | Provider Unknown | | | | | [place] | | | | | | [address] | | | | | | [phone] | | | +--------+ + + + [...] + +--------+ + + + | XR HIP LEFT 2-3 | Routin | 09/14/2015 | | Results for this | | VIEWS | e | 11:34 PM | | procedure are in the | | | | PST | | results section. | + +--------+ + + + documented in this encounter Results XR Hip Left 2-3 Views (09/14/2015 11:34 PM PST) + + | Specimen | + + | | + + + + + | Narrative | Performed At | + + + | This is a non-reportable procedure without a radiologist report and | | | is used for image storage only | | + + + + + | Procedure Note | + + | Romel Tran - 02/21/2019 6:03 PM PDT This is a non-reportable procedure | | without a radiologist report and isused for image storage only | + + documented in this encounter Visit Diagnoses + + | Diagnosis | + + | Pain Generalized pain | + + documented in this encounter"
--- OUTSIDE RECORDS SUMMARY | ~2019-07-26 | XMS | Encounter Summary ---
Demographics + + + | Address | [address] | | | [place] [address] | + + + | Home Phone | | + + + | Preferred Language | Unknown | + + + | Marital Status | | + + + | Mormon Affiliation | Unknown | + + + | Race | Unknown | + + + | Ethnic Group | Unknown | + + + Author + + + | Author | [facility] | | | and [place] | + + + | Organization | [facility] | | | [...] Team Providers + +------+ + | Care Hand Scraper Name | Role | Phone | + +------+ + | Parth Vivas | PCP | | | MD | | | + +------+ + Encounter Details +--------+ + + + + | Date | Type | Department | Care Team | Description | +--------+ + + + + | 02/22/ | Orders Only | [facility] | China Mcintyre | Personal history of | | 2019 | | [facility] | [address] | nicotine dependence | | | | ORTHOPEDIC SPINE | [address] | | | | | [address] | [place] [address] | | | | | [place], [place] | [phone] | | | | | [address] | | | | | | [phone] | | | +--------+ + + + [...] as of this encounter Plan of Treatment + +------+--------+ + + | Name | Type | Priori | Associated Diagnoses | Order Schedule | | | | ty | | | + +------+--------+ + + | Nicotine, Urine, | Lab | Routin | Personal history | Expected: | | Qual | | e | of nicotine | 04/06/2018, Expires: | | | | | dependence | 03/30/2019 | + +------+--------+ + + documented as of this encounter Visit Diagnoses + + | Diagnosis | + + | Personal history of nicotine dependence Personal history of tobacco use, presenting | | hazards to health | + + documented in this encounter"
--- OUTSIDE RECORDS SUMMARY | ~2019-07-26 | XMS | Clinical Summary ---
Demographics + + + | Address | [address] | | | [place] [address] | + + + | Home Phone | | + + + | Preferred Language | Unknown | + + + | Marital Status | | + + + | Yazidism Affiliation | Unknown | + + + | Race | Unknown | + + + | Ethnic Group | Unknown | + + + Author + + + | Author | [facility] | | | and [place] | + + + | Organization | [facility] | | | [...] Team Providers + +------+ + | Care Exterior Door Installer Name | Role | Phone | + +------+ + | Parth Vivas | PCP | | | MD | | | + +------+ + Allergies No Known Allergies Medications + + + +---------+------+------+-------+ | Medication | Sig | Dispensed | Refills | Star | End | Statu | | | | | | t | Date | s | | | | | | Date | | | + + + +---------+------+------+-------+ | | Take 1 tablet by | | 0 | 05/0 | | Activ | | olmesartan-hydrochlo | mouth daily. | | | 8/20 | | e | | rothiazide (BENICAR | | | | 17 | | | | HCT) 40-12.5 MG per | | | | | | | | tablet | | | | | | | + + + +---------+------+------+-------+ | metFORMIN | Take 750 mg by mouth | | 0 | 05/0 | | Activ | | (GLUCOPHAGE-XR) 750 | daily with dinner. | | | 02/26 | | e | | mg 24 hr tablet | | | | 17 | | | + + + +---------+------+------+-------+ | aspirin 81 MG | Take 81 mg by mouth | | 0 | 05/0 | | Activ | | tablet | daily. | | | 02/26 | | e | | | | | | 17 | | | + + + +---------+------+------+-------+ | | Take 1 tablet by | | 0 | 05/0 | | Activ | | losartan-hydrochloro | mouth daily. | | | 01/26 | | e | | thiazide (HYZAAR) | | | | 18 | | | | 100-12.5 MG per | | | | | | | | tablet | | | | | | | + + + +---------+------+------+-------+ | traMADol (ULTRAM) | Take 1 tablet by | 60 | 2 | 05/0 | | Activ | | 50 mg tablet | mouth 2 (two) times | tablet | | 9/20 | | e | | | daily. | | | 19 | | | + + + +---------+------+------+-------+ | diazePAM (VALIUM) | 1/2 to 1 tab 30 | 4 | 0 | 05/0 | | Activ | | 10 MG tablet | minutes prior to MRI | tablet | | 9/20 | | e | | | scan. | | | 19 | | | + + + +---------+------+------+-------+ | gabapentin | Take 1 capsule by | 90 | 5 | 10/0 | | Activ | | (NEURONTIN) 300 mg | mouth 2 times daily. | capsule | | 4/20 | | e | | capsuleIndications: | | | | 19 | | | | Pars defect with | | | | | | | | spondylolisthesis, | | | | | | | | Spondylolisthesis of | | | | | | | | lumbar region | | | | | | | + + + +---------+------+------+-------+ | traMADol (ULTRAM) | Take 1 tablet by | 120 | 3 | 10/0 | | Activ | | 50 mg | mouth every 6 hours | tablet | | 4/20 | | e | | tabletIndications: | as needed (Pain). | | | 19 | | | | Pars defect with | | | | | | | | spondylolisthesis, | | | | | | | | Spondylolisthesis of | | | | | | | | lumbar region | | | | | | | + + + +---------+------+------+-------+ Active Problems + + + | Problem | Noted Date | + + + | Lumbar radiculopathy | 01/31/2017 | + + + | Pars defect with spondylolisthesis | 01/31/2017 | + + + | [...] recent travel history available. | + + Last Filed Vital Signs + [...] | 37.2 C (98.9 F) | 11/14/2016 4:34 PM | | | | | PDT | | + + + + + | Respiratory Rate | 16 | 11/14/2016 4:34 PM | | | | | PDT | [...] | | + + + + + Plan of Treatment + + + + + | Health Maintenance | Due Date | Last Done | Comments | + + + + + | Urine Drug Screening | | | | | | 2 | | | + + + + + | Vaccine: | | 03/06/1978, 05/21/1971, | | | Dtap/Tdap/Td (4 - | 8 | 03/19/1971 | | | Tdap) | | | | + + + + + | Colorectal Cancer | | | | | Screening | 6 | | | | (Colonoscopy) | | | | + + + + + | Vaccine: Zoster (1 | | | | | of 2) | 6 | | | + + + + + | Vaccine: Influenza | | 04/23/2013 | | | (#1) | 9 | | | + + + + + Results Not on filefrom Last 3 Months Insurance + +--------+ +--------+ +---------+------+ | Payer | Benefi | Subscriber | Effect | Phone | Address | Type | | | t Plan | ID | luis | | | | | | / | | Dates | | | | | | Group | | | | | | + +--------+ +--------+ +---------+------+ | [employer] | PAC[employer]I | [id number] | 02/08/20 | [phone] | | PPO | | | CSOURC | 00 | 17-Pre | 2 | | | | | E PSN | | sent | | | | | | PREFER | | | | | | | | RED | | | | | | + +--------+ +--------+ +---------+------+ + +--------+ +--------+ + + | Guarantor Name | Accoun | Relation to | Date | Phone | Billing Address | | | t Type | Patient | of | | | | | | | | | | + +--------+ +--------+ + + | Favian [place] | Person | Self [birth year] | [address] | | | al/Fam | | 1965 | [phone] | [place] [address] | | | nena | | | 1 (Home) | | + +--------+ +--------+ + + Advance Directives + + + + + | Type | Date Recorded | Patient | Explanation | | | | It Technical Support Specialist | | + + + + + | Power of | | | | | Meal Cooker | | | | + + + + + | Advance | | | | | Directive | | | | + + + + +"
--- OUTSIDE RECORDS SUMMARY | ~2019-07-26 | XMS | Encounter Summary ---
Demographics + + + | Address | [address] | | | [place] [address] | + + + | Home Phone | | + + + | Preferred Language | Unknown | + + + | Marital Status | | + + + | Church Affiliation | Unknown | + + + | Race | Unknown | + + + | Ethnic Group | Unknown | + + + Author + + + | Author | [facility] | | | and [place] | + + + | Organization | [facility] | | [...] Team Providers + +------+ + | Care Events Associate Name | Role | Phone | + +------+ + PCP | Unavailable | + +------+ + Encounter Details +--------+ + + + + | Date | Type | Department | Care Team | Description | +--------+ + + + + | 09/27/ | Hospital | [facility] | Conversion | Pain | | 2016 | Encounter | CONVERSION [address] | Transaction, | | | | | [address] | Provider Unknown | | | | | [place] | | | | | | [address] | | | | | | [phone] | | | +--------+ + + + [...]
--- OUTSIDE RECORDS SUMMARY | ~2019-07-26 | XMS | Encounter Summary ---
Demographics + + + | Address | [address] | | | [place] [address] | + + + | Home Phone | | + + + | Preferred Language | Unknown | + + + | Marital Status | | + + + | Scientology Affiliation | Unknown | + + + | Race | Unknown | + + + | Ethnic Group | Unknown | + + + Author + + + | Author | [facility] | | | and [place] | + + + | Organization | [facility] | | | [...] Team Providers + +------+ + | Care Weigher Operator Name | Role | Phone | + +------+ + PCP | Unavailable | + +------+ + Encounter Details +--------+ + + + + | Date | Type | Department | Care Team | Description | +--------+ + + + + | 09/27/ | Hospital | [facility] | Conversion | Pain | | 2016 | Encounter | CONVERSION [address] | Transaction, | | | | | [address] | Provider Unknown | | | | | [place] | | | | | | [address] | | | | | | [phone] | | | +--------+ + + + [...] LUMBAR SPINE 2 OR | Routin | 09/14/2015 | | Results for this | | 3 VW | e | 11:34 PM | | procedure are in the | | | | PST | | results section. | + +--------+ + + + documented in this encounter Results XR Lumbar Spine 2 or 3 Vw (09/14/2015 11:34 PM PST) + + | [...]
--- OUTSIDE RECORDS SUMMARY | ~2019-07-26 | XMS | Encounter Summary ---
Demographics + + + | Address | [address] | | | [place] [address] | + + + | Home Phone | | + + + | Preferred Language | Unknown | + + + | Marital Status | | + + + | Zoroastrianism Affiliation | Unknown | + + + | Race | Unknown | + + + | Ethnic Group | Unknown | + + + Author + + + | Author | [facility] | | | and [place] | + + + | Organization | [facility] | | [...] Team Providers + +------+ + | Care Pre Certification Specialist Name | Role | Phone | [...] + + | 04/12/ | Office | [facility] | Danish Mcintyre ARNP | Pars defect with | | 2019 | Visit | [facility] | [address] | spondylolisthesis | | | | ORTHOPEDIC SPINE | [address] [facility] | (Primary Dx); | | | | [address] | [place] [address] | Spondylolisthesis of | | | | [place] | [phone] | lumbar region | | | | [address] | | | | | | [phone] | | | +--------+---------+ + + + [...] documented in this encounter Progress Notes Mick Drake, Presser And Shaper Knitted Goods - 04/12/2019 10:00 AM PDTFormatting of this [...] as well as previous epidural in the [facility] and has failed. Location: Bilateral lower [...] Note: We spent approximately 25 minutes in [id number] time of which greater than 50% was [...]
--- OUTSIDE RECORDS SUMMARY | ~2019-07-26 | XMS | Encounter Summary ---
Demographics + + + | Address | [address] | | | [place] [address] | + + + | Home Phone | | + + + | Preferred Language | Unknown | + + + | Marital Status | | + + + | Oriental Orthodox Affiliation | Unknown | + + + | Race | Unknown | + + + | Ethnic Group | Unknown | + + + Author + + + | Author | [facility] | | | and [place] | + + + | Organization | [facility] | | | [...] Team Providers + +------+ + | Care Mixed Crop Farmer Name | Role | Phone | + +------+ + PCP | Unavailable | + +------+ + Encounter Details +--------+ + + + + | Date | Type | Department | Care Team | Description | +--------+ + + + + | 11/14/ | Hospital | [facility] | Conversion | Low back pain, | | 2017 | Encounter | [facility] | Transaction, | unspecified back | | | | [address] | Provider Unknown | pain laterality, | | | | [place], [place] | [phone] | unspecified | | | | [address] | | chronicity, with | | | | [phone] | Bryan Rainey DO | sciatica presence | | | | | [address] | unspecified | | | | | [place] [address] | | | | | | [phone] | | | | | | | [...]
--- OUTSIDE RECORDS SUMMARY | ~2019-07-26 | XMS | Encounter Summary ---
Demographics + + + | Address | [address] | | | [place] [address] | + + + | Home Phone | | + + + | Preferred Language | Unknown | + + + | Marital Status | | + + + | Anglican Affiliation | Unknown | + + + | Race | Unknown | + + + | Ethnic Group | Unknown | + + + Author + + + | Author | [facility] | | | and [place] | + + + | Organization | [facility] | | | and [...] Team Providers + +------+ + | Care Chlorine Plant Operator Name | Role | Phone | + +------+ + | Parth Vivas | PCP | | | MD | | | + +------+ + Encounter Details +--------+ + + + + | Date | Type | Department | Care Team | Description | +--------+ + + + + | 02/28/ | Orders Only | [facility] | Herbert Borjas MD | Acquired | | 2019 | | NEUROSURGERY [address] | [address] | spondylolisthesis of | | | | [address] | [place], | lumbosacral region | | | | [place], [place] | [place] [address] | (Primary Dx); | | | | [address] | [phone] | Spondylolisthesis of | | | | [phone] | | lumbar region; Pars | | | | | | defect of lumbar | | | | | | spine | +--------+ + + + + Social [...] + | Acquired spondylolisthesis of lumbosacral region - Primary Acquired spondylolisthesis | + + | Spondylolisthesis of lumbar region Acquired spondylolisthesis | + + | Pars defect of lumbar spine Acquired spondylolisthesis | + + documented in this encounter"
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
--- OUTSIDE RECORDS SUMMARY | ~2019-07-26 | XMS | Clinical Summary ---
Demographics + + + | Address | [address] | | | [place] [address] | + + + | Home Phone | | + + + | Preferred Language | Unknown | + + + | Marital Status | | + + + | Mandaen Affiliation | Unknown | + + + | Race | Unknown | + + + | Ethnic Group | Unknown | + + + Author + + + | Author | [facility] (Historical as of | | | 02-23-19) | + + + | Organization | [facility] (Historical as of | | | 02-23-19) [...] Team Providers + +------+ + | Care Applications Scientist Name | Role | Phone | + [...] +------+-------+---------+ | [employer] | [employer] | [id number] | | | | | | WORK [...] | 1965 | [phone] [place] [address] | | | nena | | | [phone] | | + +--------+ +--------+ + +"
--- OUTSIDE RECORDS SUMMARY | ~2019-07-26 | XMS | Encounter Summary ---
Demographics + + + | Address | [address] | | | [place] [address] | + + + | Home Phone | | + + + | Preferred Language | Unknown | + + + | Marital Status | | + + + | Temple Affiliation | Unknown | + + + | Race | Unknown | + + + | Ethnic Group | Unknown | + + + Author + + + | Author | [facility] | | | and [place] | + + + | Organization | [facility] | | [...] Team Providers + +------+ + | Care Freight Conductor Name | Role | Phone | + +------+ + PCP | Unavailable | + +------+ + Encounter Details +--------+ + + + + | Date | Type | Department | Care Team | Description | +--------+ + + + + | 09/27/ | Hospital | [facility] | Conversion | Pain | | 2016 | Encounter | CONVERSION DEP [address] | Transaction, | | | | | [address] | Provider Unknown | | | | | [place] | | | | | | [address] | | | | | | [phone] | | | +--------+ + + + [...]
--- OUTSIDE RECORDS SUMMARY | ~2019-07-26 | XMS | Encounter Summary ---
Demographics + + + | Address | [address] | | | [place] [address] | + + + | Home Phone | | + + + | Preferred Language | Unknown | + + + | Marital Status | | + + + | Episcopal Affiliation | Unknown | + + + | Race | Unknown | + + + | Ethnic Group | Unknown | + + + Author + + + | Author | [facility] | | | and [place] | + + + | Organization | [facility] | | | and [...] Team Providers + +------+ + | Care Supervisor Erection Shop Name | Role | Phone | + [...] | | | [address] | [place] [address] | | | | | [place], [place] | [phone] | | | | | [address] | | | | | | [phone] | | | +--------+ + + + [...]
--- OUTSIDE RECORDS SUMMARY | ~2019-07-26 | XMS | Encounter Summary ---
Demographics + + + | Address | [address] | | | [place] [address] | + + + | Home Phone | | + + + | Preferred Language | Unknown | + + + | Marital Status | | + + + | Orthodox Affiliation | Unknown | + + + | Race | Unknown | + + + | Ethnic Group | Unknown | + + + Author + + + | Author | [facility] | | | and [place] | + + + | Organization | [facility] | | | [...] Team Providers + +------+ + | Care Family Law Attorney Name | Role | Phone | + [...] Provider Unknown | | | | | [place] | [phone] | | | | | [phone] | (Fax) | | | | | [phone] | | | +--------+ + + + [...]
--- OUTSIDE RECORDS SUMMARY | ~2019-07-26 | XMS | Encounter Summary ---
Demographics + + + | Address | [address] | | | [place] [address] | + + + | Home Phone | | + + + | Preferred Language | Unknown | + + + | Marital Status | | + + + | Christian Affiliation | Unknown | + + + | Race | Unknown | + + + | Ethnic Group | Unknown | + + + Author + + + | Author | [facility] | | | and [place] | + + + | Organization | [facility] | | | and [...] Team Providers + +------+ + | Care Polymerization Kettle Operator Name | Role | Phone | + +------+ + | Parth Vivas | PCP | | | MD | | | + +------+ + Encounter Details +--------+ + + + + | Date | Type | Department | Care Team | Description | +--------+ + + + + | 12/30/ | Orders Only | [facility] | Bryan Rainey DO | | | 2017 | | [facility] | [address] | | | | | [address] | [place] [address] | | | | | [address] | [phone] | | | | | [place], [place] | | | | | | [address] | | | | | | [phone] | | | +--------+ + + + [...]
--- OUTSIDE RECORDS SUMMARY | ~2019-07-26 | XMS | Encounter Summary ---
Demographics + + + | Address | [address] | | | [place] [address] | + + + | Home Phone | | + + + | Preferred Language | Unknown | + + + | Marital Status | | + + + | Samaritan Affiliation | Unknown | + + + | Race | Unknown | + + + | Ethnic Group | Unknown | + + + Author + + + | Author | [facility] | | | and [place] | + + + | Organization | [facility] | | | [...] Team Providers + +------+ + | Care Acoustical Tile Patternmaker Name | Role | Phone | + +------+ + PCP | Unavailable | + +------+ + Encounter Details +--------+ + + + + | Date | Type | Department | Care Team | Description | +--------+ + + + + | 01/05/ | Hospital | [facility] | Conversion | Lumbar | | 2018 | Encounter | [facility] [address] | Transaction, | radiculopathy; Pars | | | | [address] | Provider Unknown | defect of lumbar | | | | [place], [place] | [phone] | spine; | | | | [address] | | Spondylolisthesis of | | | | [phone] | Danish Mcintyre ARNP | lumbar region | | | | | [address] [facility] | | | | | | [place], [place] | | | | | | [address] | | | | | | | [...] | + + + | MARCELINA Quiroga [facility] CT LUMBAR SPINE WO CONTRAST 01/05/2018 [...]
--- OUTSIDE RECORDS SUMMARY | ~2019-07-26 | XMS | Encounter Summary ---
Demographics + + + | Address | [address] | | | [place] [address] | + + + | Home Phone | | + + + | Preferred Language | Unknown | + + + | Marital Status | | + + + | Latter Day Affiliation | Unknown | + + + | Race | Unknown | + + + | Ethnic Group | Unknown | + + + Author + + + | Author | [facility] | | | and [place] | + + + | Organization | [facility] | | | [...] Team Providers + +------+ + | Care Mine Safety Manager Name | Role | Phone | + +------+ + | Parth Vivas | PCP | | | MD | | | + +------+ + Encounter Details +--------+ + + + + | Date | Type | Department | Care Team | Description | +--------+ + + + + | 02/28/ | Orders Only | [facility] | Herbert Borjas MD | Acquired | | 2019 | | NEUROSURGERY [address] | [address] | spondylolisthesis of | | | | [address] | [place], | lumbosacral region | | | | [place], [place] | [place] [address] | (Primary Dx); | | | | [address] | [phone] | Spondylolisthesis of | | | | [phone] | | lumbar region; Pars | | [...]
--- OUTSIDE RECORDS SUMMARY | ~2019-07-26 | XMS | Clinical Summary ---
Demographics + + + | Address | [address] | | | [place] [address] | + + + | Home Phone | | + + + | Preferred Language | Unknown | + + + | Marital Status | | + + + | Christianity Affiliation | Unknown | + + + | Race | Unknown | + + + | Ethnic Group | Not or | + + + Author + + + | Organization | Unknown | + + + | Address | Unknown | + + + | Phone | Unavailable | + + + Care Team Providers + +------+ + | Care Smooth Stucco Resurfacer Name | Role | Phone | + +------+ + PCP | Unavailable | + +------+ + Source Comments REY is fully live on both [facility] and [facility] Allergies Not on File Medications Not on file Active Problems Not on file Social History + +-------+ +--------+------+ | Tobacco [...] | + + Last Filed Vital Signs Not on file Plan of Treatment + + + + + | Health Maintenance | Due Date | Last Done | Comments | + + + + + | Influenza (Flu) | | | | | vaccination (#1) | 9 | | | + + + + + | Pneumococcal | Aged Out | | No longer eligible | | vaccination | | | based on patient's | | | | | age to complete this | | | | | topic | + + + + + Results Not on filefrom Last 3 Months"
--- OUTSIDE RECORDS SUMMARY | ~2019-07-26 | XMS | Encounter Summary ---
Demographics + + + | Address | [address] | | | [place] [address] | + + + | Home Phone | | + + + | Preferred Language | Unknown | + + + | Marital Status | | + + + | Caodaism Affiliation | Unknown | + + + | Race | Unknown | + + + | Ethnic Group | Unknown | + + + Author + + + | Author | [facility] | | | and [place] | + + + | Organization | [facility] | | | [...] Team Providers + +------+ + | Care Veneer Patcher Name | Role | Phone | + +------+ + PCP | Unavailable | + +------+ + Encounter Details +--------+ + + + + | Date | Type | Department | Care Team | Description | +--------+ + + + + | 01/05/ | Hospital | [facility] | Conversion | Acquired | | 2019 | Encounter | [facility] | Transaction, | spondylolisthesis of | | | | [address] | Provider Unknown | lumbosacral region | | | | [place], [place] | | | | | | [address] | (Fax) | | | | | [phone] | Herbert Brojas MD | | | | | | [address] | | | | | | [place], | | | | | | [place] [address] | | | | | | [phone] | | | | | | | [...]
--- OUTSIDE RECORDS SUMMARY | ~2019-07-26 | XMS | Encounter Summary ---
Demographics + + + | Address | [address] | | | [place] [address] | + + + | Home Phone | | + + + | Preferred Language | Unknown | + + + | Marital Status | | + + + | Restorationist Affiliation | Unknown | + + + | Race | Unknown | + + + | Ethnic Group | Unknown | + + + Author + + + | Author | [facility] | | | and [place] | + + + | Organization | [facility] | | [...] Team Providers + +------+ + | Care Process Safety Manager Name | Role | Phone | + +------+ + | Parth Vivas | PCP | | | MD | | | + +------+ + Encounter Details +--------+ + + + + | Date | Type | Department | Care Team | Description | +--------+ + + + + | 11/15/ | Orders Only | [facility] | Herbert Borjas MD | | | 2019 | | [facility] | [address] | | | | | ORTHOPEDIC SPINE | [place] | | | | | [address] | [place] [address] | | | | | [place] | [phone] | | | | | [address] | | | | | | [phone] | | | +--------+ + + + [...]
--- OUTSIDE RECORDS SUMMARY | ~2019-07-26 | XMS | Encounter Summary ---
Demographics + + + | Address | [address] | | | [place] [address] | + + + | Home Phone | | + + + | Preferred Language | Unknown | + + + | Marital Status | | + + + | Anabaptism Affiliation | Unknown | + + + | Race | Unknown | + + + | Ethnic Group | Unknown | + + + Author + + + | Author | [facility] | | | and [place] | + + + | Organization | [facility] | | | [...] Team Providers + +------+ + | Care Theatrical Variety Agent Name | Role | Phone | + [...] | | | | [address] | [place] [address] | | | | | [address] | [phone] | | | | | [place], [place] | | | | | | [address] | | | | | | [phone] | | | +--------+ + + + [...]
--- OUTSIDE RECORDS SUMMARY | ~2019-07-26 | XMS | Encounter Summary ---
Demographics + + + | Address | [address] | | | [place] [address] | + + + | Home Phone | | + + + | Preferred Language | Unknown | + + + | Marital Status | | + + + | Church Affiliation | Unknown | + + + | Race | Unknown | + + + | Ethnic Group | Unknown | + + + Author + + + | Author | [facility] | | | and [place] | + + + | Organization | [facility] | | | [...] Team Providers + +------+ + | Care Egg Factory Worker Name | Role | Phone | + [...] | | | [address] | [place] [address] | | | | | [place] | [phone] | | | | | [address] | | | | | | [phone] | | | +--------+ + + + [...]
--- OUTSIDE RECORDS SUMMARY | ~2019-07-26 | XMS | Encounter Summary ---
Demographics + + + | Address | [address] | | | [place] [address] | + + + | Home Phone [...] + + + | Author | [facility] | | | and [place] | + + + | Organization | [facility] | | [...] Team Providers + +------+ + | Care Alcohol And Drug Counselor Name | Role | Phone | + [...] [place] | | | | | | [address] | (Fax) | | | | | [phone] | | | +--------+ + + + [...]
--- OUTSIDE RECORDS SUMMARY | ~2019-07-26 | XMS | Clinical Summary ---
Demographics + + + | Address | [address] | | | [place] [address] | + + + | Home Phone | | + + + | Preferred Language | Unknown | + + + | Marital Status | | + + + | Buddhist Affiliation | Unknown | + + + | Race | Unknown | + + + | Ethnic Group | Not or | + + + Author + + + | Organization | Unknown | + + + | Address | Unknown | + + + | Phone | Unavailable | + + + Care Team Providers + +------+ + | Care Nurse Manager Name | Role | Phone | + +------+ + PCP | Unavailable | + +------+ + Source Comments REY is fully live on both [facility] and [facility] InPatient.[facility] Allergies Not on File Medications Not on [...]
--- OUTSIDE RECORDS SUMMARY | ~2019-07-26 | XMS | Encounter Summary ---
Demographics + + + | Address | [address] | | | [place] [address] | + + + | Home Phone | | + + + | Preferred Language | Unknown | + + + | Marital Status | | + + + | Sabianism Affiliation | Unknown | + + + [...] Team Providers + +------+ + | Care Town Clerk Name | Role | Phone | + +------+ + PCP | Unavailable | + +------+ + Encounter Details +--------+ + + + + | Date | Type | Department | Care Team | Description | +--------+ + + + + | 09/27/ | Hospital | [facility] | Conversion | Pain | | 2016 | Encounter | CONVERSION [address] | Transaction, | | | | | [address] | Provider Unknown | | | | | [place] | | | | | | [address] | | | | | | [phone] | | | +--------+ + + + [...] MRI LUMBAR SPINE WO | Routin | 09/09/2015 | | Results for this | | CONTRAST | e | 11:34 PM | | procedure are in the | | | | PST | | results section. | + +--------+ + + + documented in this encounter Results MRI Lumbar Spine wo Contrast (09/09/2015 11:34 PM PST) + + | Specimen [...]
--- OUTSIDE RECORDS SUMMARY | ~2019-07-26 | XMS | Encounter Summary ---
Demographics + + + | Address | [address] | | | [place] [address] | + + + | Home Phone | | + + + | Preferred Language | Unknown | + + + | Marital Status | | + + + | Zoroastrian Affiliation | Unknown | + + + [...] Team Providers + +------+ + | Care Hide And Skin Colerer Name | Role | Phone | + +------+ + PCP | Unavailable | + +------+ + Encounter Details +--------+ + + + + | Date | Type | Department | Care Team | Description | +--------+ + + + + | 01/05/ | Hospital | [facility] | Conversion | Acquired | | 2019 | Encounter | [facility] | Transaction, | spondylolisthesis of | | | | [address] | Provider Unknown | lumbosacral region; | | | | [place], [place] | | Spondylolisthesis, | | | | [id number] | | lumbar region; Pars | | | | [phone] | | defect of lumbar | | [...] +---------+ + + | diazePAM (VALIUM) | 1/2 to 1 [...] CT LUMBAR SPINE WO | Routin | 01/05/2019 | | Results for this | | CONTRAST | e | 11:00 AM | | procedure are in the | | | | PDT | | results section. | + +--------+ + + + documented in this encounter Results CT Lumbar Spine wo Contrast (01/05/2019 11:00 AM PDT) + + | Specimen | + + | | + + + + + | Impressions | Performed At | + + + | 1. Bilateral L5 pars defects. Anterolisthesis of L5 on S1 | | | measuring 1.4 cm. 2. Bilateral severe neural foraminal narrowing at | | | L5-S1. 3. Other findings as described. Signed by: Leopoldo Broussard Isaac | | | Sign Date/Time: 01/06/2019 3:25 PM | | + + + + + + | Narrative | Performed At | + + + | CT LUMBAR SPINE WITHOUT CONTRAST CLINICAL INFORMATION: Lumbar | | | pain/radiculopathy. COMPARISON: 01/05/2019 MRI PROCEDURE: Thin | | | section non-contrast axial sections through the lumbar spine. | | | Sagittal and coronal reformations were obtained from the axial | | | acquisition data. At least one of the following CT dose optimization | | | techniques were used: Automated exposure control; Adjustment of mA | | | and/or kV according to patient size; Use of iterative reconstruction | | | technique. FINDINGS: L1-L2 through L3-L4 levels: No spinal canal | | | stenosis or neural foraminal stenosis. L4-L5: No spinal canal | | | stenosis. Bilateral mild neural foraminal narrowing. Broad-based | | | posterior disc protrusion. L5-S1: Bilateral L5 pars defects. | | | Anterolisthesis L5 on S1 measuring 1.4 cm. Bilateral severe | | | neural foraminal narrowing. Advanced disc degeneration with disc | | | height loss, vacuum disc phenomenon and endplate sclerosis. | | | Nonobstructive 2 mm calcifications of the right kidney upper pole and | | | right kidney lower pole.. Atherosclerotic calcification the | | | abdominal aorta. No acute fractures. | | + + + + + | Procedure Note | + + | Marc, Rad Conversion - 02/19/2019 11:[address] LUMBAR SPINE WITHOUT CONTRAST | | CLINICAL INFORMATION: | | Lumbar pain/radiculopathy. | | COMPARISON: | | 01/05/2019 MRI | | PROCEDURE: | | Thin section non-contrast axial sections through the lumbar spine. | | Sagittal and coronal reformations were obtained from the axial | | acquisition data. | | At least one of the following CT dose optimization techniques were | | used: Automated exposure control; Adjustment of mA and/or kV according | | to patient size; Use of iterative reconstruction technique. | | FINDINGS: | | L1-L2 through L3-L4 levels: No spinal canal stenosis or neural | | foraminal stenosis. | | L4-L5: No spinal canal stenosis. Bilateral mild neural foraminal | | narrowing. Broad-based posterior disc protrusion. | | L5-S1: Bilateral L5 pars defects. Anterolisthesis L5 on S1 measuring | | 1.4 cm. Bilateral severe neural foraminal narrowing. Advanced disc | | degeneration with disc height loss, vacuum disc phenomenon and endplate | | sclerosis. | | Nonobstructive 2 mm calcifications of the right kidney upper pole and | | right kidney lower pole.. | | Atherosclerotic calcification the abdominal aorta. | | No acute fractures. | | IMPRESSION: | | 1. Bilateral L5 pars defects. Anterolisthesis of L5 on S1 measuring | | 1.4 cm. | | 2. Bilateral severe neural foraminal narrowing at L5-S1. | | 3. Other findings as described. | | Signed by: Leopoldo Broussard Isaac | | Sign Date/Time: 01/06/2019 3:25 PM | + + documented in this encounter Visit Diagnoses + + | Diagnosis | + + | Acquired spondylolisthesis of lumbosacral region Acquired spondylolisthesis | + + | Spondylolisthesis, lumbar region | + + | Pars defect of lumbar spine Acquired spondylolisthesis | + + documented in this encounter"
--- OUTSIDE RECORDS SUMMARY | ~2019-07-26 | XMS | Encounter Summary ---
Demographics + + + | Address | [address] | | | [place] [address] | + + + | Home Phone | | + + + | Preferred Language | Unknown | + + + | Marital Status | | + + + | Restorationist Affiliation | Unknown | + + + | Race | Unknown | + + + | Ethnic Group | Unknown | + + + Author + + + | Author | [facility] | | | and [place] | + + + | Organization | [facility] | | | [...] Team Providers + +------+ + | Care Telephone Assembler Name | Role | Phone | + +------+ + PCP | Unavailable | + +------+ + Encounter Details +--------+ + + + + | Date | Type | Department | Care Team | Description | +--------+ + + + + | 01/05/ | Hospital | [facility] | Conversion | Acquired | | 2019 | Encounter | [facility] | Transaction, | spondylolisthesis of | | | | [address] | Provider Unknown | lumbosacral region; | | | | [place], [place] | | Spondylolisthesis, | | | | [address] | | lumbar region; Pars | | | | [phone] | | defect of lumbar | | [...]
--- OUTSIDE RECORDS SUMMARY | ~2019-07-26 | XMS | Encounter Summary ---
Demographics + + + | Address | [address] | | | [place] [address] | + + + | Home Phone | | + + + | Preferred Language | Unknown | + + + | Marital Status | | + + + | Sikh Affiliation | Unknown | + + + | Race | Unknown | + + + | Ethnic Group | Not or | + + + Author + + + | Author | [facility] | + + + | Organization | [facility] | + + + | Address | Unknown | + + + | Phone | Unavailable | + + + Care Team Providers + +------+ + | Care Shipping And Receiving Material Handler Name | Role | Phone | + +------+ + PCP | Unavailable | + +------+ + Encounter Details +--------+ + + + + | Date | Type | Department | Care Team | Description | +--------+ + + + + | 07/19/ | Transcribed | [facility] at | Dictginger, Eduin | Transcribed | | 1996 | | [facility] [address] | | | | | | [address] | | | | | | Mailcode: [id number] [address] | | | | | | Humberto Avalos | | | | | | [place] [facility] | | | | | | [place] [address] | | | | | | [phone] | | | +--------+ + + + [...] as of this encounter Progress Notes Interface, Paper Tube Grader In - 09/16/2006 5:09 AM PST [facility] [place] [address] [place], [place] [address] or July 19, 1996 JACKSON GEE MD [address] [address] RE:MARCELINA VICKERS MR#:[id number] Gee: It [...] migraine headaches. 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 He [...] deltoids, biceps, triceps with flexion and extension, tie sawyer, and instrinsics 5/5. In the lower extremities, [...] these tests to be done here at [facility], and he actually does not, as they will take quite a bit of time, and this might require several trips here. Therefore, I will ask that you order all of these tests and send me the results and films, and then I will see him back, briefly, in our clinic in [place] to review them with him. I greatly [...] to me. Yours sincerely, Ki Dangelo M.D. Sdc Teacher, Neurosurgery SANTINO/jacky documented in this encounter Plan of Treatment Not on filedocumented as of this encounter Visit Diagnoses Not on filedocumented in this encounter
--- OUTSIDE RECORDS SUMMARY | ~2019-07-26 | XMS | Encounter Summary ---
Demographics + + + | Address | [address] | | | [place] [address] | + + + | Home Phone | | + + + | Preferred Language | Unknown | + + + | Marital Status | | + + + | Anglican Affiliation | Unknown | + + + | Race | Unknown | + + + | Ethnic Group | Unknown | + + + Author + + + | Author | [facility] | | | and [place] | + + + | Organization | [facility] | | | [...] Team Providers + +------+ + | Care Deicer Repairer Name | Role | Phone | + +------+ + PCP | Unavailable | + +------+ + Encounter Details +--------+ + + + + | Date | Type | Department | Care Team | Description | +--------+ + + + + | 09/27/ | Hospital | [facility] | Conversion | Pain | | 2016 | Encounter | CONVERSION [address]P [address] | Transaction, | | | | | [address] | Provider Unknown | | | | | [place] | | | | | | [address] | | | | | | [phone] | | | +--------+ + + + [...]
--- OUTSIDE RECORDS SUMMARY | ~2019-07-26 | XMS | Clinical Summary ---
Demographics + + + | Address | [address] | | | [place] [address] | + + + | Home Phone | | + + + | Preferred Language | Unknown | + + + | Marital Status | | + + + | Gnosticist Affiliation | Unknown | + + + | Race | Unknown | + + + | Ethnic Group | Unknown | + + + Author + + + | Author | [facility] | | | and [place] | + + + | Organization | [facility] | | [...] Team Providers + +------+ + | Care Public Works Commissioner Name | Role | Phone | + [...] +--------+ +---------+------+ | [employer] | PACIFI | [phone] | 02/08/20 | [phone] | | PPO [...] | 1965 | [phone] | [place] [address] | | | nena | | | 1 (Home) | | + +--------+ +--------+ + + Advance Directives + + + + + | Type | Date Recorded | Patient | Explanation | | | | Preparation Center Coordinator | | + + + + + | Power of | | | | | Integrity Consultant | | | | + + + + + | Advance | | | | | Directive | | | | + + + + +"
[~2019-07-26 07:45] MED LIST: BENICAR HCT 401 EACH PO; MEDROL4 M1 PO; METFORMIN HCL750 MG PO; PERCOCET 5-3251 EACH PO
--- OUTSIDE RECORDS SUMMARY | 2019-07-26 07:48 | XMS ---
PreManage Notification: MARCELINA VICKERS Security Clinical Informatics Director Events No recent Security Events currently on file [facility] There are no care providers on record at this time. Shayy has no Care Guidelines for this patient. Shelley VISIT COUNT (12 MO.) 1 SARIKA Engel TOTAL 1 NOTE: Visits indicate total known visits. ED/UCC VISIT TRACKING (12 MO.) 07/26/2019 07:45 SARIKA Cho OR TYPE: Emergency COMPLAINT: - BACK PAIN INPATIENT VISIT TRACKING (12 MO.) No inpatient visits to display in this time frame [email or web address]
[2019-07-26] MEDS ORDERED: ULTRAM50 MG PO (07:53)
[2019-07-26] MEDS ORDERED: ASPIR 8181 MG PO (07:55)
[2019-07-26] MEDS ORDERED: ONDANSETRON ODT8 MG PO (10:41)
[2019-07-26] MEDS ORDERED: NORCO 7.5-3251 EACH PO (10:41)
[2019-07-26] MEDS ORDERED: FLOMAX0.4 MG PO (10:41)
== END 2019-07-26 12:38 | disposition home or self-care (01) ==
LOC: ED 07:45
DX: N13.2 Hydronephrosis with renal and ureteral calculous obstruction (principal); I10 Essential (primary) hypertension; F17.200 Nicotine dependence, unspecified, uncomplicated; Z79.84 Long term (current) use of oral hypoglycemic drugs; Z79.82 Long term (current) use of aspirin; Z79.899 Other long term (current) drug therapy
CPT/HCPCS: 74176; 96361; 96374; 96375; 96376; 99284-25; A9270; J1170; J1885; J7030

== ENCOUNTER 2019-07-28 20:59 | Emergency (ER) | payer OTHER ==
[~2019-07-28] VITALS: Ht 185.4 cm; Wt 104.3 kg
[~2019-07-28 20:59] MED LIST changes: +ASPIR 8181 MG PO; +FLOMAX0.4 MG PO; +NORCO 7.5-3251 EACH PO; +ONDANSETRON ODT8 MG PO; +ULTRAM50 MG PO
--- OUTSIDE RECORDS SUMMARY | 2019-07-28 21:02 | XMS ---
PreManage Notification: MARCELINA VICKERS Security Director Patient Events No recent Security Events currently on file CRITERIA MET - [facility] - [facility] - 2 Visits in 30 Days CARE PROVIDERS There are no care providers on record at this time. Shayy has no Care Guidelines for this patient. [facility] MO.) [facility] NOTE: Visits indicate total known visits. ED/C VISIT TRACKING (12 MO.) 07/28/2019 20:[address] [facility] [place] TYPE: Emergency COMPLAINT: - FLANK PAIN 07/26/2019 07:[address] [facility] [place] TYPE: Emergency COMPLAINT: - BACK PAIN DIAGNOSES: - Nicotine dependence, unspecified, uncomplicated - intermediate (current) use of aspirin - Hydronephrosis with renal and ureteral calculous obstruction - Other rn long term care (current) drug therapy - exterminator helper termite (current) use of oral hypoglycemic drugs - Unspecified abdominal pain - Essential (primary) hypertension INPATIENT VISIT TRACKING (12 MO.) No inpatient visits to display in this time frame [email or web address]
[2019-07-28] MEDS ORDERED: HYDROCODON-ACE1 EA11 PO (21:16)
[2019-07-28] MEDS ORDERED: TAMSULOSIN HCL0.4 MG PO (21:16)
[2019-07-29] MEDS ORDERED: DILAUDID2 MG PO (03:03)
[2019-07-31] MEDS ORDERED: LOSARTAN-HCTZ1 EAC2 PO (15:05)
== END 2019-07-29 03:43 | disposition home or self-care (01) ==
LOC: ED 20:59
DX: N20.1 Calculus of ureter (principal); I10 Essential (primary) hypertension; E11.9 Type 2 diabetes mellitus without complications
CPT/HCPCS: 80053; 81001; 85025; 96374; 96375; 99284-25; J1170; J1885; J2405; J7030

== ENCOUNTER 2020-12-31 07:47 | Day surgery (SDC) | payer OTHER ==
[~2020-12-31] VITALS: Ht 182.9 cm; Wt 96.6 kg
[~2020-12-31 07:47] MED LIST changes: +DILAUDID2 MG PO; +HYDROCODON-ACE1 EA11 PO; +LOSARTAN-HCTZ1 EAC2 PO; +TAMSULOSIN HCL0.4 MG PO
--- NOTE | 2020-12-31 09:57 | NUR ---
12/31/20 0957 Constance Doan 0952 PATIENT ARRIVES TO PACU RESTING WITH EYES CLOSED. RESP EVEN AND UNLABORED, NC AT 2 LITERS. TURNED OFF ON ARRIVAL TO PACU.
--- NOTE | 2020-12-31 21:04 | OR ---
[facility] [address] [place], [place] [address] Signed DATE OF OPERATION: 12/31/2020 SURGEON: Talib Haro MD PREOPERATIVE DIAGNOSES: 1. Dysphagia, distal esophagus, liquids and solids. 2. Upper gastrointestinal suggestive of neoplasm. 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 PROCEDURE: Esophagogastroduodenoscopy with biopsy. ANESTHESIA: Intravenous sedation, fentanyl 100 mcg and Versed 5 mg. 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 The patient underwent lumbar spinal surgery several months ago and soon thereafter began having significant dysphagia to both solids and liquids. He has no history of longstanding reflux disease particularly. He had no dysphagia until this recent time frame. He was seen on a walk-in basis recently upon referral from Dr. Vivas for consideration of upper endoscopy. In the meantime, he has undergone upper GI study in [facility], which showed an irregular neoplasm of the distal esophagus highly consistent with malignancy. He is admitted at this time to undergo upper endoscopy to better characterize this problem, he understand the risks of bleeding, infection, and perforation. FINDINGS: Indeed distal esophagus did have carcinoma. Extending from approximately 35 cm from the incisors to the GE junction. There appeared to be no obvious gastric component per se. I did not see Chris's esophagus otherwise. The esophageal lumen was narrowed, though it did allow for passage of the upper endoscope. The stomach and duodenum were otherwise normal. The vocal cords were normal as well. DESCRIPTION OF PROCEDURE: Electronically Signed By: TALIB HARO MD 12/31/20 2104 PATIENT NAME: MARCELINA VICKERS OPERATIVE REPORT DATE OF : 67 REPORT #: [id number] PHYSICIAN: TALIB HARO MD PCP: LAMONT VIVAS MD REPORT IS CONFIDENTIAL AND NOT TO BE RELEASED WITHOUT AUTHORIZATION [facility] [address] [place], [place] [address] Signed The patient was brought to the surgical endoscopy suite, placed in lateral decubitus position after undergoing topical lidocaine and atomized anesthesia. He was given intravenous sedation to the point of slurred speech and nystagmus with full cardiopulmonary monitoring. A bite block was placed. An Olympus video upper endoscope was passed in the hypopharynx. The vocal cords appeared normal. Scope was advanced to the esophagus, which appeared normal until about 35 cm from the incisors where an obvious somewhat bulky neoplasm was noted. Initial attempts and passage of the scope through this area were somewhat difficult and the scope was realigned and carefully manipulated throughout the distal esophagus ultimately entering the stomach without traumatic injury. The stomach itself appeared normal. Rugal folds were normal. There was mild chronic antral gastritis. The pylorus was normal and scope was passed through into the duodenum, which was normal. Biopsies were obtained of this duodenum to assess for celiac disease and biopsies also taken of the antrum for both SHORTY and pathologic testing. Retroflexed view was undertaken showing no sign of fungating neoplasm on the gastric side of the GE junction. There was no sign of large hiatal hernia. The scope was withdrawn and biopsies were then taken of the distal esophagus, which were clearly consistent with malignancy. Multiple biopsies were taken through the segment of esophagus effected by neoplasm. The proximal portion of the neoplasm was measured about 35 cm. Careful withdrawal of scope showed the remaining esophagus to be normal. The scope was removed and the patient was taken to the recovery room in good condition. CONCLUDING DIAGNOSIS: Esophageal malignancy most consistent with adenocarcinoma. PLAN: We will obtain a CT scan of the abdomen, pelvis and chest. He will likely benefit from neoadjuvant chemoradiation therapy followed by subsequent esophageal resection. For the time being, we will do the imaging studies as a gross assessment of stage in particular to rule out distant metastatic disease, which would certainly alter the plan. MD ADILENE Dunbar/MODL /[id number] cc: Lamont Vivas MD Electronically Signed By: TALIB HARO MD 12/31/20 2104 PATIENT NAME: MARCELINA VICKERS OPERATIVE REPORT DATE OF : 67 REPORT #: [id number] PHYSICIAN: TALIB HARO MD PCP: LAMONT VIVAS MD REPORT IS CONFIDENTIAL AND NOT TO BE RELEASED WITHOUT AUTHORIZATION [facility] [address] [facility] [place] [address] Signed Copies: LAMONT VIVAS MD ~ Electronically Signed By: TALIB HARO MD 12/31/20 2104 PATIENT NAME: MARCELINA VICKERS ALAN OPERATIVE REPORT DATE OF : 67 REPORT #: [id number] PHYSICIAN: TALIB HARO MD PCP: LAMONT VIVAS MD REPORT IS CONFIDENTIAL AND NOT TO BE RELEASED WITHOUT AUTHORIZATION
--- NOTE | 2021-01-20 11:50 | PATH ---
[facility] [address] [facility] [place], [place] [address] Signed THIS IS AN ADDENDUM REPORT SPECIMEN(S): A DUODENUM SPECIMEN(S): B ANTRUM/PYLORUS SPECIMEN(S): C LOWER ESOPHAGUS SPECIMEN SOURCE: A. DUODENUM B. ANTRUM/PYLORUS C. LOWER ESOPHAGUS CLINICAL HISTORY: EGD with possible biopsies and dilation. Pre: Esophageal dysphagia, chest tightness/pain. Post: Esophageal cancer. MICROSCOPIC DESCRIPTION: Histologic sections of all submitted blocks are examined by light microscopy. These findings, together with the gross examination, support the pathologic diagnosis. FINAL PATHOLOGIC DIAGNOSIS: A. Duodenum, biopsy: - Duodenal mucosa with no histopathologic abnormality. - Negative for increased intraepithelial lymphocytes. - Negative for dysplasia or malignancy. B. Stomach antrum/pylorus, biopsy: - Antral/oxyntic mucosa with mild mucosal capillary congestion. - Negative for Helicobacter organisms on HE stain. - Negative for dysplasia or malignancy. C. Esophagus, lower, biopsy: - Invasive moderately differentiated adenocarcinoma. - See comment. COMMENT: Regarding specimen C: Mismatch repair (MMR) testing by IHC has been ordered and will be reported in an addendum. As part of [facility]' Quality Improvement Program, part C of this case was reviewed by another member of our pathology staff. A diagnostic alert was initiated by Dr. Garcia (Dr. Haji to be called) on 01/04/2021. NAL:AMB:cml:C1NR PATIENT NAME: MARCELINA VICKERS PATHOLOGY DATE OF : 67 REPORT #: [id number] PHYSICIAN: DRAKE العلي PCP: LAMONT BURGER MD REPORT IS CONFIDENTIAL AND NOT TO BE RELEASED WITHOUT AUTHORIZATION [facility] [address] [place], [place] [address] Signed GROSS DESCRIPTION: Three specimens are received in three containers, labeled "ST." A. The specimen, labeled "ST, duodenum biopsy," is received in formalin and consists of one mendosa soft tissue fragment that measures 0.2 cm in greatest dimension. The specimen is entirely submitted in cassette (A1). B. The specimen, labeled "ST, antrum biopsy," is received in formalin and consists of one mendosa soft tissue fragment that measures 0.2 cm in greatest dimension. The specimen is entirely submitted in cassette (B1). C. The specimen, labeled "ST, lower esophagus biopsy," is received in formalin and consists of four mendosa soft tissue fragments that measure 0.3 cm in greatest dimension. The specimen is entirely submitted in cassette (C1). JS (under the direct supervision of a pathologist) The Gross Description was prepared using a voice recognition system. The report was reviewed for accuracy; however, sound-alike word errors, addition and/or deletions may occur. If there is any question about this report, please contact Client Services. PERFORMING LABORATORY: The technical component was performed by [facility], [address] [place] [address] (Chief Privacy Officer: Karen Magaña MD; CLIA# [id number]). [facility], [address] [address] (CLIA# [id number]). COMMENT: Tumor cells show no loss of nuclear expression of MMR proteins. This correlates with a low probability of microsatellite instability. However, if there is a high clinical suspicion for Villa syndrome (hereditary non-polyposis colorectal carcinoma syndrome) in this patient, additional testing should be considered. Please contact [facility] if such testing is indicated. NAL:cml ADDENDUM MICROSCOPOIC EXAMINATION: A panel of four antibodies is selected which will detect 95% of microsatellite unstable carcinomas. Testing is performed at the request of Yasmeen Garcia M.D. Block: C1. Recut HE slide is prepared from the block. The presence of neoplastic glands and non-neoplastic internal control glands or stroma is confirmed. PATIENT NAME: MARCELINA VICKERS PATHOLOGY DATE OF : 67 REPORT #: [id number] PHYSICIAN: DRAKE العلي PCP: LAMONT BURGER MD REPORT IS CONFIDENTIAL AND NOT TO BE RELEASED WITHOUT AUTHORIZATION [facility] [address] [place], [place] [address] Signed Internal control cells for MLH1, MSH2, PMS2 and MSH6 are positive. Neoplastic gland cells show the following: - MLH1: Positive. - MSH2: Positive. - MSH6: Positive. - PMS2: Positive. NAL:cml [place] Professional interpretation [facility] by [facility], [address] [facility]. [address] [place] [address] (CLIA# [id number]). ADDITIONAL NOTES: Immunohistochemical and/or in situ hybridization studies were performed on this case with the appropriate positive controls that react as expected. This test was developed and its performance characteristics determined by [facility]. It has not been cleared or approved by the U.S. Food and Drug Administration. The FDA has determined that such clearance or approval is not necessary. This test is used for clinical purposes. It should not be regarded as investigational or for research. [facility] is certified under the Clinical Laboratory Improvement Amendments of 1988 (CLIA) as qualified to perform high complexity clinical laboratory testing. Immunohistochemical and/or in situ hybridization studies were performed on this case with the appropriate positive controls that react as expected. This test was developed and its performance characteristics determined by [facility]. It has not been cleared or approved by the U.S. Food and Drug Administration. The FDA has determined that such clearance or approval is not necessary. This test is used for clinical purposes. It should not be regarded as investigational or for research. [facility] is certified under the Clinical Laboratory Improvement Amendments of 1988 (CLIA) as qualified to perform high complexity clinical laboratory testing. REASON FOR ADDENDUM: To add results of additional testing. ADDENDUM PATHOLOGIC DIAGNOSIS: C. Invasive adenocarcinoma of the esophagus, microsatellite instability PATIENT NAME: MARCELINA VICKERS PATHOLOGY DATE OF : 67 REPORT #: [id number] PHYSICIAN: DRAKE العلي PCP: LAMONT BURGER MD REPORT IS CONFIDENTIAL AND NOT TO BE RELEASED WITHOUT AUTHORIZATION [facility] [address] [place], [place] [address] Signed testing by IHC: - MLH1: Intact nuclear expression. - MSH2: Intact nuclear expression. - MSH6: Intact nuclear expression. - PMS2: Intact nuclear expression. INTERPRETATION: Normal pattern. ADDITIONAL NOTES: Immunohistochemistry (IHC) studies for PD-L1 using the concentrated Dako 22C3 clone on the VENTANA BenchMark Ultra platform with OptiView detection was performed at [facility], [address] [place] [address]. The Dako 22C3 pharmDx clone is not FDA approved for use on the VENTANA platform; however, comparison studies show nearly 100% concordance of results for the test performed using the concentrated Dako 22C3 clone on the VENTANA BenchMark Ultra platform compared to the FDA approved Dako 22C3 pharmDx protocol on the Dako Autostainer Link48 (ASL48) platform*. The test using the concentrated Dako 22C3 clone was developed and its performance characteristics determined by [facility], but this does not represent FDA-approved application of this assay. [facility] is certified under the Clinical Laboratory Improvement Amendment of 1988 (CLIA) as qualified to perform high complexity clinical laboratory testing. This test is used for clinical purposes. It should not be regarded as investigational or for research. * Use of the 22C3 anti-PD-L1 antibody to determine PD-L1 expression in multiple automated immunohistochemistry platforms Coleman M, Adolfo S, Lily Gaspar, Miguel L, Milena J, et al. (2017) Use of the 22C3 antiPD-L1 antibody to determine PD-L1 expression in multiple automated immunohistochemistry platforms. PLOS ONE 12(8): o0372652.https://doi.org/10.1371/journal.pone.1228784 PERFORMING LABORATORY: The technical component and professional interpretation were performed by [facility], [address] [place] [address] (Chief Privacy Officer: Roberto Carlos Turk D.O.; CLIA#: [id number]). REASON FOR ADDENDUM: To add results of additional testing. ADDENDUM PATHOLOGIC DIAGNOSIS: C. Lower esophagus, adenocarcinoma: PATIENT NAME: MARCELINA VICKERS PATHOLOGY DATE OF : 67 REPORT #: [id number] PHYSICIAN: DRAKE PATHOLOGY PCP: LAMONT BURGER MD REPORT IS CONFIDENTIAL AND NOT TO BE RELEASED WITHOUT AUTHORIZATION [facility] [address], [place] [address] Signed - PD-L1 expression by IHC: - Combined positive score: 5%. - Interpretation of PD-L1 expression level: Expression (greater than or equal to 1%). - HER-2 protein by IHC: Negative; IHC score 0. ADDENDUM COMMENT: PD-L1 protein expression and HER protein by immunohistochemistry are performed on block C1 at the request of Dr. Edd Samano. MZ:[facility] ADDENDUM MICROSCOPIC EXAMINATION: Specimen type: Lower esophagus. Block: C1. The fixation is 10% buffered formalin. The length of fixation is unknown. HER-2 protein expression by immunohistochemistry using the FDA-approved HER-2 Pathway is performed at [facility], [place], [place]. The assay has not been validated for decalcified specimens. Standardized batch control materials react appropriately. The specimen is satisfactory. The presence of tumor is confirmed. Scoring is according to Ruschoff validation of the [place] ToGA guidelines. Negative; no reactivity in any tumor cell; score 0. Diagnostician: Yasmeen Garcia MD Pathologist Diagnostician: Celena Rizzo MD, PhD Pathologist Electronically Signed 01/20/2021 Copies: ~ PATIENT NAME: ALEEMARCELINA PATHOLOGY DATE OF : 67 REPORT #: [id number] PHYSICIAN: DRAKE العلي PCP: LAMONT BURGER MD REPORT IS CONFIDENTIAL AND NOT TO BE RELEASED WITHOUT AUTHORIZATION
== END 2020-12-31 10:40 | disposition home or self-care (01) ==
LOC: DS 07:47 → OPS 07:47 → DS 09:00 → OPS 10:40 → DS 10:45
PROVIDERS: ATTEND Surgery
PROC: 0DB78ZX Excision of Stomach, Pylorus, Via Natural or Artificial Opening Endoscopic, Diagnostic (ICD-10-PCS; 2020-12-31)
PROC: 0DB38ZX Excision of Lower Esophagus, Via Natural or Artificial Opening Endoscopic, Diagnostic (ICD-10-PCS; 2020-12-31)
PROC: 0DB98ZX Excision of Duodenum, Via Natural or Artificial Opening Endoscopic, Diagnostic (ICD-10-PCS; principal; 2020-12-31 09:00)
DX: C15.5 Malignant neoplasm of lower third of esophagus (principal); R13.19 Other dysphagia; E11.9 Type 2 diabetes mellitus without complications; I10 Essential (primary) hypertension; K29.50 Unspecified chronic gastritis without bleeding; Z87.891 Personal history of nicotine dependence; Z98.890 Other specified postprocedural states; Z79.84 Long term (current) use of oral hypoglycemic drugs
CPT/HCPCS: 99153; G0500; J2250; J3010; J7121

== ENCOUNTER 2021-01-22 13:46 | Inpatient (IN) | payer OTHER ==
[~2021-01-22] VITALS: Ht 185.4 cm; Wt 94.8 kg
--- NOTE | 2021-01-22 14:36 | NUR ---
RAPID SWAB COLLECTED
--- NOTE | 2021-01-22 15:49 | NUR ---
PT ARRIVED FOR DIRECT ADMIT, AMBULATED TO NURSING UNIT. PT ON ROOM AIR, LUNG SOUNDS CLEAR, DENIES SOB. PT WITH PAIN 7/10 TO MID CHEST, HAS HAD ACHE PAIN FOR A WHILE, DENIES CARDIAC CHEST PAIN. DENIES NAUSEA, BOWEL TONES ACTIVE, HAS HAD RECNT WEIGHT LOSS DUE TO INABILITY TO EAT/SWALLOW. CMS INTACT, WITHOUT EDEMA. IV PLACEMENT TO LEFT AC, 4 TOTAL ATTEMPTS. LR BOLUS INFUSING. PT GIVEN 4MG IV MORPHIN FOR PAIN. ADMISSION INTAKE COMPLETED. PT DENIES OTHER NEEDS AT THIS TIME.
--- NOTE | 2021-01-22 16:18 | NUR ---
SCDS APPLIED TO BLE. PT DENIES NEEDS AT THIS TIME.
[2021-01-22] MEDS ORDERED: OXYCODONE H5 MG/5 ML PO (16:31)
[2021-01-22] MEDS ORDERED: CITALOPRAM HBR20 MG PO (16:32)
[2021-01-22] MEDS ORDERED: METOPROLOL SUCC50 MG PO (16:32)
[2021-01-22] MEDS ORDERED: METFORMIN HCL500 M1 PO (16:32)
--- NOTE | 2021-01-22 17:08 | NUR ---
MED REC COMPLETE
--- NOTE | 2021-01-22 18:17 | NUR ---
PT REQUESTING PAIN MEDICATION AND SOMETHING TO HELP HIM SLEEP TONIGHT. CONTACTED DR. HARO, TELEPHONE ORDER FOR IV BENADRYL 25MG HS PRN. GIVEN 4MG IV MORPHINE FOR PAIN 12/17. CONSENT SIGNED AND WITNESSED.
--- NOTE | 2021-01-22 22:45 | NUR ---
ASSESSMENT COMPLETE, VSS. 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 REPORTS 6-7/10 ESOPHAGUS PAIN R/T TUMOR LOCATION, 2MG PRN MORPHINE GIVEN ALONG WITH PRN BENADRYL TO PROMOTE REST. pt AGREES TO PLAN AND VERBALIZES UNDERSTANDING TO CALL IF PAIN DOESN'T IMPROVE OR WORSENS. UP TO VOID, SBA AND BACK TO BED. STEADY ON FEET. IV FLUIDS INFUSING PER MD ORDERS, IV SITE WNL AND FLUSHES EASILY. pt NPO, HX T2DM. ACCUCHECK RESULT OF 84, pt DENIES S/SX OF HYPOGLYCEMIA. WHEN ASKED IF pt IS AWARE WHEN BS DROPS, pt STATES, "OH YES, I FEEL DIZZY AND CAN GET A HEADACHE". WILL MONITOR AND SPOT CHECK PRN. NO FURTHER NEEDS, CALL LIGHT IN REACH AND MOUTH SWABS AT BEDSIDE.
--- NOTE | 2021-01-22 23:54 | NUR ---
pt RESTING QUIETLY IN BED WITH EYES CLOSED, RR EVEN AND UNLABORED. HR WNL, SPO2 ON RA 97%. CALL LIGHT IN REACH.
--- NOTE | 2021-01-23 00:41 | NUR ---
NEW BAG IV FLUIDS HUNG AND INFUSING PER MD ORDERS, SITE WNL. NO NEEDS VERBALIZED AT THIS TIME. pt REPORTS PAIN HAS IMPROVED, DENIES NEED FOR ADDITIONAL PAIN MEDICATION AT THIS TIME, CALL LIGHT IN REACH.
--- NOTE | 2021-01-23 02:30 | NUR ---
ASSESSMENT COMPLETE, VSS. pt REPORTS TOLERABLE 6/10 PAIN. DENIES NEED FOR PAIN MEDICATION. ALSO DENIES NEED TO VOID. SCD'S IN PLACE, CALL LIGHT IN REACH.
--- NOTE | 2021-01-23 03:35 | NUR ---
CALL LIGHT ANSWERED, pt UP TO VOID SBA AND BACK TO BED. STEADY ON FEET. REPORTS 6-7/10 PAIN, 4MG PRN MORPHINE GIVEN, SEE EMAR. REPORTED MINIMAL NAUSEA, RESOLVED WITHOUT NEED FOR MEDICATION. PRN SPOT CHECK COMPLETED pt IS NPO, RESULT OF 87. WILL CONTINUE TO MONITOR. IV FLUIDS RESUMED, SITE WNL. CALL LIGHT IN REACH.
--- NOTE | 2021-01-23 06:15 | NUR ---
vs and i&o's complete. bed linen change and preop-wipedown also done. lr with straight tubing in room and preprocedure checklist started. charge master coordinator erika to call imaging and inform them that pt is available for ordered x-ray. iv fluids infusing per md orders, site wnl. call light in reach.
--- NOTE | 2021-01-23 07:30 | NUR ---
Shift report recieved from BIANCA Tyalor. Pt sitting up in chair, w/ call light in reach. IV fluids infusing per provider order. Pt c/o pain in epigastric area, requesting PRN pain medication. Pt denies any other needs at this time.
--- NOTE | 2021-01-23 08:05 | NUR ---
Pt sitting up in chair w/ call light in reach. PRN pain medication administered per pt request/provider order. Morning assesment completed and scheduled meds administered per provider order. Pt's in room, pt denies any needs at this time.
--- NOTE | 2021-01-23 10:29 | NUR ---
BIANCA Joy transfering pt to OR via stretcher.
--- NOTE | 2021-01-23 11:43 | NUR ---
01/23/21 114[address] 1138- PT ARRIVES TO PACU NONAROUSABLE TO NOXIOUS STIMULI. RESP EVEN AND UNLABORED. PT IS SNORING. JAW THRUST PERFORMED AND THIS CLEARED. OXYGEN SAT HIGH 90'S TO 100% ON 10L VIA MASK. 1141- PT AROUSING TO STIMULI. PT IS NOW ABLE TO MAINTAIN HIS OWN AIRWAY. JAW THRUST STOPPED.
--- NOTE | 2021-01-23 12:44 | NUR ---
Pt returned to room from PACU. VSS on RA. IV fluids infusing per provider order. Report recived from BIANCA Red[place]. Pt c/o pain at surgical site 11/16, PRN pain medication given per pt request/provider order. at bedside and call light in reach. Pt denies any other needs at this time, assesment complete.
--- NOTE | 2021-01-23 13:42 | NUR ---
VSS. PT ASSISTED BACK TO BED. PT REQUESTING ICE CHIPS, PROVIDED. PT DENIES OTHER NEEDS AT THIS TIME. AT BEDSIDE.
--- NOTE | 2021-01-23 14:45 | NUR ---
Pt sitting up on side of bed w/ call light in reach, SCD's on, and IV fluids infusing per provider order. Pt c/o 8/10 pain at surgical site, PRN pain medication given per pt request/provider order. Pt denies nausea, no other needs at this time. Pt has voided urine several times w/o difficulty, pt tolerating ice chips.
--- NOTE | 2021-01-23 16:22 | NUR ---
Pt resting in bed safely w/ call light in reach. Final set of post op VS completed, VSS on RA. Pt c/o pain at surgical site, PRN pain medications given per pt request/provider order. Pt's PEG tube flushed w/ water, liquid Tylenol given, and flushed w/ water again. Pt tolerated well, gastric content observed before initial flush of water. Pt denies nausea at this time. No other needs at this time.
--- NOTE | 2021-01-23 18:22 | NUR ---
Pt resting in bed safely w/ call light in reach. Pt c/o pain at surgical site, PRN pain medication given per pt request/provider order. Pt given cup of ice chips per request, denies any other needs at this time
--- NOTE | 2021-01-23 19:42 | NUR ---
REPORT RECEIVED FROM DAY SHIFT RN. PT LYING IN BED ALERT AND ORIENTED. REPORTS PAIN IS TOLERABLE AT THIS TIME. IVF INFUSING WNL. DENIES NEEDS. WHITE BOARD UPDATED. CALL LIGHT IN REACH.
--- NOTE | 2021-01-23 20:23 | OR ---
[facility] [address] [place], [place] [address] Signed DATE OF OPERATION: 01/23/2021 SURGEON: Talib Haro MD PREOPERATIVE DIAGNOSIS: Esophageal obstruction secondary to radiation therapy related to advanced esophageal carcinoma. POSTOPERATIVE DIAGNOSIS: Esophageal obstruction secondary to radiation therapy related to advanced esophageal carcinoma. PROCEDURES: 1. Upper endoscopy. 2. Placement of Kvng gastrostomy (open technique). ANESTHESIA: General endotracheal, Laith Corea CRNA INDICATIONS: This 55-year-old white man is a patient of Dr. Talib Vivas and diagnosed by me in late December with esophageal carcinoma. Metastatic workup showed metastatic disease to the liver, the GE junction, and mediastinal lymph nodes. A plan of palliative therapy was initiated with evaluation by medical oncologist, Dr. Cheryle Mendez, and also radiation therapy with Dr. Gopal Puente. In the past week or so, he has undergone esophageal radiation, which has culminated in essentially a near obstruction of the esophagus with inability to swallow even liquids at this point. It is likely this is related to post radiation edema rather than progression of tumor, the latter is still a possibility. He has not yet initiated chemotherapy, which was planned for February 08. I was advised yesterday by Dr. Gopal Ansari of his new recent problem and I directly admitted him to the hospital for fluid resuscitation yesterday, anticipating placement of a gastrostomy feeding tube today. It is uncertain if a PEG type approach would be possible (pull technique) or he may require instead a mini-laparotomy with open gastrostomy, the latter is more likely. I have recommended upper endoscopy and possible PEG tube if possible, but if not, then an open Kvng gastrostomy. The risks of bleeding, infection, and other unforeseen complications related to this intervention were reviewed with the patient and his . They understand and wished to proceed. Electronically Signed By: TALIB HARO MD 01/23/212022 PATIENT NAME: MARCELINA VICKERS OPERATIVE REPORT DATE OF : 67 REPORT #: [id number] PHYSICIAN: TALIB HARO MD PCP: LAMONT VIVAS MD REPORT IS CONFIDENTIAL AND NOT TO BE RELEASED WITHOUT AUTHORIZATION [facility] [address] [place], [place] [address] Signed FINDINGS: Upper endoscopy clearly showed impassable distal esophagus. There is some sloughing of mucosa and friability. Passage of the endoscope was not forthcoming and on that basis, a PEG type approach was deemed inadvisable. Open gastrostomy was performed without problem. Palpation within the intraabdominal cavity did show significant adenopathy in the periportal region. The stomach itself was free of carcinomatosis. A 20-Urdu IMER gastrostomy tube was placed without problem and appears to be functioning well. DESCRIPTION OF PROCEDURE: The patient was brought to the operating room, given a general endotracheal anesthetic. Preoperative antibiotic Ancef was given. Sequential compression device stockings were used. A bite block was placed and an a video Olympus upper endoscope passed into the hypopharynx and easily passed into the esophagus. Proximal two-thirds of the esophagus were normal. In the distal portion, the inflammatory changes related to radiation therapy could be identified with some sloughing of mucosa. Passage of the scope to the distal esophagus showed a narrowed area that was essentially impassable for the scope. There was no sign of necrosis proper. Gentle pressure in the distal portion to allow for passage of the scope was still unsuccessful in passing it and it was deemed inadvisable to attempt a percutaneous endoscopic gastrostomy (PEG tube) by the pull technique. The scope was removed. The abdomen was then prepared with a chlorhexidine solution and draped sterilely. A small epigastric incision was made. Dissection carried to the subcutaneous tissue with electrocautery. The midline fascia incised and properitoneal space identified and and the abdomen entered. The intraabdominal inspection showed no sign of ascites or carcinomatosis. Palpation in the region of the stephy hepatis did show firm and dense adenopathy consistent with the CT scan findings recently. The transverse colon was reflected inferiorly in the stomach and delivered to the midline wound. Plans were made for open Kvng gastrostomy. A 2-0 silk sutures were secured and pursestring configuration concentrically. A small incision was made that would correspond to the site of gastrostomy, which is in the junction between the body and antrum of the stomach. A 20-Urdu IMER tube was inspected and irrigated and found to be with a functional balloon. It was passed through the anterior abdominal wall in the usual way and the balloon once again tested. Using cautery, center point of the pursestring suture in the serosal aspect of the stomach was incised. Using hemostats, the layers of the stomach were elevated and Electronically Signed By: TALIB HARO MD 01/23/212022 PATIENT NAME: MARCELINA VICKERS OPERATIVE REPORT DATE OF : 67 REPORT #: [id number] PHYSICIAN: TALIB HARO MD PCP: LAMONT VIVAS MD REPORT IS CONFIDENTIAL AND NOT TO BE RELEASED WITHOUT AUTHORIZATION [place] [phone] Signed cauterized allowing for entry into the gastric lumen. The tube was manipulated into the stomach. The balloon partially inflated with saline solution and the pursestring sutures were snugged up and secured. The serosa of the stomach was then secured to the anterior abdominal wall with interrupted 2-0 silk sutures. The balloon was more fully inflated and withdrawn snugly against the abdominal wall. The collar flange was secured as well. The site on the tube measures at 4 cm. Flushing of the tube showed no sign of leakage or other problem. The midline fascia was reapproximated running #1 PDS suture and skin closed with running subcuticular 3-0 Vicryl. The small lateral incision that had been made initially was secured with interrupted 3-0 Vicryl. Steri-Strips were applied to these areas. Acticoat dressing was applied as was a was gauze beneath the flange. The flange was secured to the tube with a heavy nylon ligature. It appeared to be secure. The patient was ultimately extubated and transferred to the recovery room in good condition and suffered no complication. ESTIMATED BLOOD LOSS: Minimal. COUNTS: Sponge, needle, and instrument counts reported as correct x3. MD ADILENE Dunbar/ESTEPHANIA /[id number] cc: MD Gopal Mendez MD, PH.D. Cheryle Mendez MD Copies: LAMONT VIVAS MD, JUNO Electronically Signed By: TALIB HARO MD 07/17/21 2023 PATIENT NAME: MARCELINA VICKERS OPERATIVE REPORT DATE OF : 67 REPORT #: [id number] PHYSICIAN: TALIB HARO MD PCP: LAMONT VIVAS MD REPORT IS CONFIDENTIAL AND NOT TO BE RELEASED WITHOUT AUTHORIZATION [address] [place], [place] [address] Signed CHERYLE MENDEZ MD ~ Electronically Signed By: TALIB HARO MD 01/23/213 PATIENT NAME: MARCELINA VICKERS OPERATIVE REPORT DATE OF : 67 REPORT #: [id number] PHYSICIAN: TALIB HARO MD PCP: LAMONT VIVAS MD REPORT IS CONFIDENTIAL AND NOT TO BE RELEASED WITHOUT AUTHORIZATION
--- NOTE | 2021-01-23 20:23 | HP ---
[facility] [address], [place] [address] Signed ADMISSION DATE: 01/22/2021 REASON FOR ADMISSION: Esophageal obstruction; known stage IV esophageal cancer, recent intensive radiation therapy. HISTORY OF PRESENT ILLNESS: This 55-year-old white man is well known to me from the recent past. He was diagnosed with distal esophageal carcinoma by upper endoscopy performed by me on December 31, 2020. He has been evaluated by Dr. Stacy, radiation therapist, who initiated palliative radiation therapy to the GE junction as he did have moderate dysphagia. Notably, upper endoscopy did allow for passage of the scope, though it was not initially particularly easy. A CT scan in the course of this metastatic workup showed distant metastatic disease to the liver and periportal lymph nodes, possibly the adrenal and some mediastinal areas. Chemotherapy has been a consideration by Dr. Samano. The patient was initiated on radiation therapy for palliation several days ago. He was feeling completely well on Monday, but more recently was noted to have significant epigastric pain and complete inability to swallow even liquids. He advised Dr. Stacy of this, who discussed it with me. My discussion with the patient and his on the phone revealed that he clearly had progressive dehydration related to complete esophageal obstruction likely related to edema from the radiation therapy that has been initiated. He is admitted for further evaluation and care likely to include placement of a feeding tube as well as fluid resuscitation. PAST MEDICAL HISTORY: Rather unremarkable other than hypertension. CURRENT MEDICATIONS: Included oxycodone, lorazepam, and metoprolol. Also takes metformin and methocarbamol. ALLERGIES: He has no known drug allergies. 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 Electronically Signed By: TALIB HARO MD 01/23/212022 PATIENT NAME: MARCELINA VICKERS HISTORY AND PHYSICAL DATE OF : 67 REPORT #: [id number] PHYSICIAN: TALIB HARO MD PCP: LAMONT BURGER MD REPORT IS CONFIDENTIAL AND NOT TO BE RELEASED WITHOUT AUTHORIZATION [facility] [address], [place] [address] Signed REVIEW OF SYSTEMS: The patient has no hematemesis or blood per rectum. He has had about 5 to 10 pound weight loss since I last saw him. He does feel "thirsty," though fluids have been initiated intravenously. PHYSICAL EXAMINATION: GENERAL: Pleasant white man who does not look systemically toxic. VITAL SIGNS: Show temperature 97.7, pulse 66, blood pressure 142/85, O2 saturation 100% on room air. NECK: Trachea is midline. Mucous membranes are slightly dry. CHEST: Clear. HEART: Regular without murmur. ABDOMEN: Nondistended. There is no evidence of ascites. There is no focal tenderness and no mass. EXTREMITIES: Show no clubbing, cyanosis, or edema. Sequential compression device stockings are in place. LABORATORY DATA: White count is 7.3, hematocrit 39.5, platelets 344,000. Chem profile is essentially normal. Creatinine is 0.91, BUN is 14, glucose 93. Liver enzymes normal. COVID serology is negative. ASSESSMENT: The patient has clinical evidence of esophageal obstruction, unable to tolerate swallowing anything including liquids. This is related to a combination of his underlying advanced distal esophageal carcinoma combined with recent radiation therapy that no doubt has caused a fair amount of inflammation and edema, worsening on the short-term rather than improving his swallowing abilities. At this point, fluid resuscitation is most important, which he is undergoing with IV fluids. Consideration will be made for a gastrostomy, which will be beneficial in the next several weeks, as his palliative therapy is maintained, which will include radiation therapy and likely additional palliative chemotherapy. Consideration is made for placement of a Port-A-Cath concurrently to the feeding tube placement, however, a somewhat increased risk of infection related to the implanted port device concurrently performed with a "dirty" gastrointestinal case has to be considered. Time has been reserved for him to undergo chemotherapy starting February 08. It is noted. I have reviewed the situation with Dr. Stacy as well as Dr. Samano yesterday Electronically Signed By: TALIB HARO MD 01/23/212022 PATIENT NAME: MARCELINA VICKERS HISTORY AND PHYSICAL DATE OF : 67 REPORT #: [id number] PHYSICIAN: TALIB HARO MD PCP: LAMONT BURGER MD REPORT IS CONFIDENTIAL AND NOT TO BE RELEASED WITHOUT AUTHORIZATION [facility] [address], [place] [address] Signed after a presentation in Tumor Board. For now, continued IV fluids, anticipating operation tomorrow, scheduled for 9:00 a.m. Upper endoscopy as consideration for endoscopic (PEG tube) approach will be made, but likely will not be appropriate if there is too much obstructive appearance of the distal esophagus in which case an open Kvng gastrostomy would be appropriate. We will further consider the reasonableness of concurrent Port-A-Cath placement. The risks of bleeding, infection, dislodgement of the catheter, infection of the port device if placed, and other unforeseen complications were reviewed in detail. They understand and wished to proceed. MD ADILENE Dunbar/LIZETTEL /[id number] cc: Deyvi Stacy MD, PH.D. MD Edd Mendez MD Copies: DEYVI STACY JONATHAN MD QUACKENBUSH, ROBERT C MD ~ Electronically Signed By: TALIB HARO MD 01/23/212022 PATIENT NAME: MARCELINA VICKERS HISTORY AND PHYSICAL DATE OF : 67 REPORT #: [id number] PHYSICIAN: TALIB HARO MD PCP: LAMONT BURGER MD REPORT IS CONFIDENTIAL AND NOT TO BE RELEASED WITHOUT AUTHORIZATION
--- NOTE | 2021-01-23 21:15 | NUR ---
EVENING ASSESSMENT COMPLETE. SCHEDULED MEDS ADMINISTERED PER EMAR. PRN FOR PAIN ADMINISTERED FOR ABD/MID CHEST PAIN. PT DENIES NAUSEA OR SOB. APPROX 200 ML OF ENSURE GRAVITY FED THROUGH G-TUBE. PT DID REPORT FULLNESS SO THE FULL 237 ML WAS NOT ADMINISTERED. G-TUBE FLUSHED WITH 20 ML TAP WATER ORDERED WNL. PT ADAM WELL. HOB ELEVATED. ABD INCISION COVERED WITH ACTICOTE, CDI. BOWEL TONES ACTIVE. ABD SOFT AND NON DISTENDED. PT UP TO BR WITH SBA TO VOID. GAIT STEADY. BACK TO BED, ADAM WELL. SCD'S IN PLACE. ICE CHIPS PROVIDED. PT DENIES QUESTIONS OR CONCERNS. CALL LIGHT IN REACH.
--- NOTE | 2021-01-24 00:17 | NUR ---
IN TO ROUND ON PT. PT AWAKE WHEN THIS CLIENT BUSINESS MANAGER ENTERS ROOM. SURGICAL CONSENT SIGNED AND PLACED IN CHART. PRN FOR REPORTED ABD PAIN ADMINISTERED PER EMAR. PT DENIES NAUSEA OR SOB. C/O FEELING HOT. ROOM TEMP ADJUSTED. PERSONAL FAN PROVIDED. PT NPO AT THIS TIME AND VERBALIZES UNDERSTANDING OF NPO STATUS. IVF INFUSING WNL. DENIES FURTHER NEEDS AT THIS TIME. CALL LIGHT IN REACH.
--- NOTE | 2021-01-24 02:32 | NUR ---
VS AND I&O COMPLETE. PT UP TO BR WITH MINIMAL SBA TO VOID. GAIT STEADY. BACK TO BED, ADAM WELL. PRN FOR PAIN ADMINISTERED FOR 6/10 ABD PAIN PER EMAR. PT DENIES NAUSEA OR SOB. EDUCATION PROVIDED REGARDING BRANDAN CATH PLACEMENT AND AFTER CARE. PT DENIES QUESTIONS AT THIS TIME. NO FURTHER NEEDS. CALL LIGHT IN REACH.
--- NOTE | 2021-01-24 06:06 | NUR ---
VS AND I&O COMPLETE. SURGICAL WIPE DOWN COMPLETE. LINENS AND GOWN CHANGED. PT REPORTS ABD PAIN 12/17. PRN FOR PAIN ADMINISTERED PER EMAR. PT DENIES NAUSEA OR SOB. BOWEL TONES ACTIVE. ABD SOFT AND NON DISTENDED. ABD DRESSING INTACT WITH SCANT AMOUNT SEROSANG DRAINAGE. SCD'S IN PLACE. PT DENIES QUESTIONS, CONCERNS, OR FURTHER NEEDS. CALL LIGHT IN REACH.
--- NOTE | 2021-01-24 07:25 | NUR ---
Shift report recieved from BIANCA Jesus. Pt is sitting up in bed w/ call light in reach. Pt c/o of abd cramping, and feeling gassy. JENNIFER Eden assisting pt to ambulate in the hallway to help relieve his pain.
--- NOTE | 2021-01-24 07:47 | NUR ---
Pt ambulated in hallway, 2 full laps. BEREAVEMENT COORDINATOR came for pt, LR w/ straight tubing hanging and abx given to BEREAVEMENT COORDINATOR.
--- NOTE | 2021-01-24 08:41 | NUR ---
01/24/21 0841 Sprakle Leon 0830- PT ARRIVES TO PACU. PT WILL OPEN HIS EYES TO STIMULI. DOES NOT ANSWER QUESTIONS OR FOLLOW COMMANDS AT THIS TIME. PT FALLS BACK TO SLEEP WHEN NOT BEING TALKED TO. RESP EVEN AND UNLABORED. OXYGEN SAT MID 90'S ON RA. 0835- PT EASILY AROUSABLE TO VOICE. PT REPORTS HIS PAIN TO THE "TOLERABLE", DENIES NAUSEA. 0836- CUSTOMER SALES ADVISOR AT THE BEDSIDE. 0839- DR. HARO LOOKING AT THE XRAY AT THE BEDSIDE. PT PROVIDED A WARM BLANKET PER HIS REQUEST. PILLOWS PLACED BEHIND HIS HEAD AND UNDER EACH ARM FOR PT COMFORT AND PER HIS REQUEST.
--- NOTE | 2021-01-24 10:00 | NUR ---
PT RECEIVED FROM PACU AT 0945. PT ALERT AND ORIENTED. PT RATIN GPAIN 11/16, DENIES NEEDS FOR PAIN MEDICATION AT THIS TIME. PT ON ROOM AIR, LUNG SOUNDS CLEAR, DENIES SOB. CMS INTACT, SCDS IN PLACE, WITHOUT EDEMA. LR AT 125ML/HR RESUMED, IV PEPCID GIVEN. PT REQUESTING SPRITE, PROVIDED. PT FEELING UP TO TUBE FEED AND FLUSH AT THIS TIME, ABLE TO PERFORM TUBE FEED OF 1 BOTTLE OF ENSURE FOLLOWED BY 120ML OF WATER FLUSH, PT TOLERATED WELL. PT ASSISTED TO BATHROOM, SBA, VOIDED. GOWN AND LINENS CHANGED. PT DENIES OTHER NEEDS AT THIS TIME.
--- NOTE | 2021-01-24 14:10 | NUR ---
Pt sitting up in bed w/ call light in reach. Pt independently administered Ensure feeding and free water flush through PEG tube. Pt tolerated well w/o nausea, pt able to feel when he was full. IV fluids stopped at this time as pt is tolerating fluids per PEG tube. Pt c/o pain PRN pain meds given per pt request/provider order.
--- NOTE | 2021-01-24 18:39 | NUR ---
PT GIVEN 200ML FREE WATER. PT RATING PAIN 6/ TO LEFT PORTACATH SITE, GIVENMG MORPHINE. CONTACTED DR. HARO AND DISCUSSED ICE PACK, OK TO PLACE ICE PACK TO SITE. PT RESTING COMFORTABLY IN BED. SCDS IN PLACE.
--- NOTE | 2021-01-24 19:20 | NUR ---
REPORT RECEIVED FROM DAY SHIFT RN. PT LYING IN BED ALERT AND ORIENTED. DENIES NEEDS AT THIS TIME. WHITE BOARD UPDATED. CALL LIGHT IN REACH.
--- NOTE | 2021-01-24 19:29 | NUR ---
PATIENT WALKED 4 LAPS AROUND MED SURG. WITH HIS VISITOR.
--- NOTE | 2021-01-24 21:15 | NUR ---
EVENING ASSESSMENT COMPLETE. SCHEDULED MEDS ADMINISTERED PER EMAR. PRN FOR PAIN ADMINISTERED FOR 6/10 PAIN IN ABD AND LEFT CHEST SURGICAL SITE. BRANDAN CATH DRESSING INTACT WITH SCANT AMOUNT SEROSANG DRAINAGE. ABD DRESSING INTACT WITH SCANT AMOUNT SEROSANG DRAINAGE. BT ACTIVE. ABD SOFT AND NON DISTENDED. PT REPORTS FLATUS. 237 ML ENSURE THROUGH G-TUBE. EDUCATION PROVIDED. PT ABLE TO DO WITH MINIMAL ASSIST. 200 ML TAP WATER BOLUS ADMINISTERED ORDERED. PT ADAM WELL. DID REPORT "FEELING FULL" BUT NOT UNCOMFORTABLE. SCD'S IN PLACE. PT DENIES QUESTIONS OR CONCERNS. CALL LIGHT IN REACH.
--- NOTE | 2021-01-25 00:26 | NUR ---
PT RESTING IN BED WITH EYES CLOSED. RESPIRATIONS EVEN. HOB ELEVATED. CALL LIGHT IN REACH.
--- NOTE | 2021-01-25 02:10 | NUR ---
PT UP TO BR TO VOID. GAIT STEADY. BACK TO BED, ADAM WELL. PRN FOR PAIN ADMNISTERED FOR REPORTED 6/10 ABD/SURGICAL SITE PAIN. 200 ML WATER BOLUS DONE BY PT WITH LITTLE ASSISTANCE. PT ADAM WELL. NO FURTHER NEEDS AT THIS TIME. CALL LIGHT IN REACH.
--- NOTE | 2021-01-25 06:04 | NUR ---
VS AND I&O COMPLETE. PT UP TO BR TO VOID. BACK TO BED, ADAM WELL. SCD'S IN PLACE. PT REPORTS TUMOR/SURGICAL PAIN 01/16. PRN IV MORPHINE PROVIDED PER EMAR PT DOES NOT THINK TYLENOL IS EFFECTIVE IN CONTROLLING HIS PAIN. ICE PACK PROVIDED FOR BRANDAN CATH INCISION. ICE CHIPS PROVIDED. CALL LIGHT IN REACH.
--- NOTE | 2021-01-25 08:31 | NUR ---
PT UNHOOKED FROM SCDS FOR MORNING WALK. LUNGS HAVE CRACKLES IN THE BASES. ADVISED TO COUGH AND DEEP BREATH. INCENTIVE ASHA AT BEDSIDE. IN ROOM. DRESSING DRY AND INTACT WITH OLDER DRAINAGE. RATES PAIN 6/10 GIVEN MORPHINE, NOT DUE FOR TORADOL YET.
--- NOTE | 2021-01-25 09:39 | NUR ---
CALLED MELANIE TO COME UP AND RECOMMEND FEEDINGS. STATED SHE WOULD BE UP HERE SHORTLY.
[2021-01-25] MEDS ORDERED: CHILDREN'S160 MG/12 PO (10:01)
--- NOTE | 2021-01-25 11:06 | NUR ---
DISCHARGE INFORMATION GONE OVER WITH PT AND HIS . THEY DECLINED TO HAVE ANY JEVITY SENT HOME WITH THEM. STATED THAT THEY HAVE PLENTY AT HOME AND WILL GET IT THROUGH [employer] WHEN THEY NEED MORE. STATE THEY ALREADY HAVE THE WRITTEN INSTRUCTIONS FOR CALORIE COUNT AND FEEDINGS FROM MELANIE. PT VERBALIZED INSTRUCTIONS ON USING TUBE FEED AND FLUSHING. GIVEN EXTRA SUPPLIES FOR TUBE IE, FLUSH AND GAUZE FOR LEAKAGE. REMOVED PERIPHERAL IV WNL.
--- NOTE | 2021-01-25 18:29 | OR ---
[facility] [address], [place] [address] Signed DATE OF OPERATION: 01/24/2021 SURGEON: Talib Haro MD PREOPERATIVE DIAGNOSES: 1. Stage IV esophageal carcinoma, recent placement of gastrostomy tube. 2. Need for palliative chemotherapy. POSTOPERATIVE DIAGNOSES: 1. Stage IV esophageal carcinoma, recent placement of gastrostomy tube. 2. Need for palliative chemotherapy. PROCEDURES: 1. Left subclavian Port-A-Cath placement (Bard port Groshong tip type catheter). 2. Surgeon-directed fluoroscopy. ANESTHESIA: Local with monitored anesthesia care, Laith Corea CRNA and local 8 mL of 0.25% Marcaine with epinephrine. INDICATION: This 55-year-old white man is a patient of Dr. 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 He has undergone initial palliative treatment including radiation therapy, which has caused a fair amount of edema of the GE junction and the patient unable to swallow. On the basis of dehydration and so fourth he was admitted by me on January 22, 2021 for fluid resuscitation. He underwent placement of the operative gastrostomy yesterday. It is anticipated that he will get palliative chemotherapy under the direction of Dr. Samano and a Port-A-Cath has been requested by Dr. Samano. He is to now undergo Port-A-Cath placement for that purpose. He understands risks of bleeding, infection, pneumothorax, arterial injury, and other unforeseen complications related to its placement and wished to proceed. FINDINGS: Dark nonpulsatile blood was noted from the subclavian vein. The catheter was placed without problem. The initial view of the tip of the catheter was in the atriocaval junction. The final x-ray showed a more transversely oriented catheter, possibly having Electronically Signed By: TALIB HARO MD 01/25/21 8354 PATIENT NAME: MARCELINA VICKERS OPERATIVE REPORT DATE OF : 67 REPORT #: [id number] PHYSICIAN: TALIB HARO MD PCP: LAMONT VIVAS MD REPORT IS CONFIDENTIAL AND NOT TO BE RELEASED WITHOUT AUTHORIZATION [facility] [address], [place] [address] Signed a drifted cephalad, but with good function, nevertheless. A postprocedure chest x-ray is pending. DESCRIPTION OF PROCEDURE: The patient was brought to the operating room and placed in the supine position. Preoperative antibiotic Ancef was given. Sequential compression device stockings were in place. He was given intravenous sedation by the inbound ingredient logistics specialist. The upper torso was clipped and prepared with chlorhexidine solution and draped sterilely. Prepped extended from the jawline inferiorly to the nipple line bilaterally. A 1% lidocaine was injected in the left infraclavicular space and with a subtalar technique, the left subclavian vein was easily accessed showing dark nonpulsatile blood. A flexible J-wire was passed down the needle. Ectopy was noted. An injection of local anesthetic was undertaken transversely over the left pectoralis and a transverse incision was made. Dissection was carried through the subcutaneous tissue with blunt electrocautery dissection. A pocket was created inferiorly down to the pectoralis fascia. The port device was partially secured to the pectoralis fascia with 2-0 Vicryl suture. The wire site was incised with an #11 blade and dilator and peel-away introducer passed over the wire. A previously inspected Groshong-type catheter from the Bard port kit was passed down the introducer after removing the wire and the dilator showing vigorous retrograde dark nonpulsatile bleeding. Catheter was passed at good distance and the patient was then placed in the neutral position rather than the Trendelenburg position. Fluoroscopy was then undertaken to allow for withdrawal of the catheter to be positioned in the atriocaval junction. Optimal position was noted. Aspiration on the catheter showed dark nonpulsatile blood and easily flushed. The catheter was delivered to the pocket with the tunneling device per manufacture's instructions trimmed to the appropriate length and secured to the Port-A-Cath device per manufacture's instruction within close collar device. The port was secured to the pectoralis fascia more fully with Vicryl suture. Fluoroscopy was then undertaken confirming that the catheter had no kink or other abnormality particular at the area of the port device. It appeared quite good. Notably, however, the tip of the catheter was more transversely oriented. Aspiration on the port with an angled Copeland needle showed dark nonpulsatile blood easily withdrawn and easy flushing. Fluoroscopy was undertaken with some contrast confirming the position of the catheter. I left the catheter as it is in the central system and although somewhat transversely oriented. I have had experience with similar positioning, which has certainly been without problem going forward. It may be that the tip of the catheter we will readjust to a more vertically oriented position in time. Electronically Signed By: TALIB HARO MD 01/25/21 1829 PATIENT NAME: MARCELINA VICKERS OPERATIVE REPORT DATE OF : 67 REPORT #: [id number] PHYSICIAN: TALIB HARO MD PCP: LAMONT VIVAS MD REPORT IS CONFIDENTIAL AND NOT TO BE RELEASED WITHOUT AUTHORIZATION [facility] [address] [place] [address] Signed The pocket was secured with interrupted 2-0 Vicryl and skin closed with running subcuticular 3-0 Vicryl on both sites of the incision. Steri-Strips were applied. The port had been flushed with heparinized saline. An Acticoat dressing was applied. The patient was allowed to emerge from sedation and taken to recovery room in good condition. A postprocedure chest x-ray in recovery room was inspected and found to have good position of the catheter after all and no evidence of complications specifically pneumothorax. MD ADILNEE Dunbar/LIZETTEL /[id number] cc: Deyvi Stacy MD, PH.D. MD Edd Mendez MD Copies: DEYVI STACY JONATHAN MD QUACKENBUSH, ROBERT C MD ~ Electronically Signed By: TALIB HARO MD 01/25/21 1829 PATIENT NAME: MARCELINA VICKERS OPERATIVE REPORT DATE OF : 67 REPORT #: [id number] PHYSICIAN: TALIB HARO MD PCP: LAMONT VIVAS MD REPORT IS CONFIDENTIAL AND NOT TO BE RELEASED WITHOUT AUTHORIZATION
--- NOTE | 2021-02-05 10:35 | DS ---
[facility] [address], [place] [address] Signed ADMISSION DATE: 01/22/2021 DISCHARGE DATE: 01/25/2021 REASON FOR ADMISSION: This 56-year-old white man is well known to me from the recent past. He was diagnosed with distal esophageal carcinoma by upper endoscopy performed by me on December 31, 2020. He was subsequently evaluated by Dr. Deyvi Stacy, radiation therapist to initiate palliative radiation therapy pending his evaluation by medical oncologist, Dr. Edd Samano. He was noted to have dysphagia, which prompted his upper endoscopy for this diagnosis. Notably, he had a CT scan prior to initiation of therapy, which showed metastatic disease to the liver, periportal lymph nodes, and mediastinum. He would be considered incurable, but palliative interventions were deemed advisable. Although, initially he was having no particular problems with progression of low-grade dysphagia, on the day of his current evaluation, he was noted by his radiation oncologist to have profound dysphagia, unable to tolerate even liquids. On that basis, he was admitted for further evaluation and care anticipating placement of a G-tube, fluid resuscitation and so on. Other details can be found in the admission history and physical document. PERTINENT PHYSICAL EXAMINATION: GENERAL: Showed a well-developed white man who did not look systemically toxic, though he was clinically dehydrated with dry mucous membranes. VITAL SIGNS: Temperature is 97.7, pulse 66, blood pressure 142/85, O2 saturations 100% on room air. HEENT: Trachea is midline without adenopathy. CHEST: Clear. HEART: Regular without murmur. ABDOMEN: Nondistended. There is no sign of ascites. There is no focal tenderness or mass. LABORATORY DATA: His white count was 7.3, hematocrit 39.5, platelets 344,000. Chem profile normal, creatinine 0.91, BUN 14, glucose 93. Liver enzymes normal. COVID serology negative. HOSPITAL COURSE: He was given fluid resuscitation and consideration for placement of a G-tube anticipating ongoing palliative therapy was made. The following day, on Monday, he underwent upper endoscopy, which confirmed that the esophagus was markedly diminished in size compared to only a few weeks ago, largely related to tumor, but had worsened Electronically Signed By: TALIB HARO MD 02/05/21 1035 PATIENT NAME: MARCELINA VICKERS DISCHARGE SUMMARY DATE OF : 67 REPORT #: [id number] PHYSICIAN: TALIB HARO MD PCP: LAMONT VIVAS MD REPORT IS CONFIDENTIAL AND NOT TO BE RELEASED WITHOUT AUTHORIZATION [facility] [address], [place] [address] Signed obviously by palliative radiation therapy (acutely). A PEG tube was not possible and on that basis, conversion to open Kvng gastrostomy with a 20-Swedish IMER tube was undertaken. He tolerated this procedure well. He was initiated on tube feedings with house formula and tap water administration to keep the tube clear. It was clear that he would need a Port-A-Cath as well. The Port-A-Cath was now placed concurrently with a feeding tube noting the combination of a clean contaminated case (gastrostomy) with a sterile implantation of prosthetic device (port) to be avoided. On Monday, he underwent placement of a left subclavian Port-A-Cath device. The device was found to be quite functional and should provide optimal IV access for chemotherapy, which is anticipated in the near future. He was instructed regarding management of the G-tube as far as flushing, enteral tube feeds and so forth. A plan was outlined by the dietitian for maintenance of calories and protein and fat as well as fluid administration for hydration and for flushing of the tube. It is noted that the patient will dominantly require as his sole nutritional support G-tube feedings. We are hopeful and optimistic that palliative interventions will improve his dysphagia to the point that he will not be dependent on enteral feeding for his sustenance in the near future. He is discharged to home in improved condition. Anticipated followup radiation therapy with Dr. Stacy and initiation of chemotherapy in the near future with Dr. Samano. DISCHARGE MEDICATIONS: Will include: 1. Aspirin tablet 81 mg p.o. daily. 2. Losartan/hydrochlorothiazide 1 tablet p.o. daily as tolerated, swallowing or crushed and via G-tube. 3. Metoprolol 50 mg extended release one p.o. or per G-tube daily. 4. For pain, he will be managed with Tylenol suspension 160 mg per 5 mL, 960 mg q.6 hours as needed for pain via G-tube q.6 hours. He will discontinue for now metformin, and oxycodone. DISCHARGE DIAGNOSES: 1. Acute therapy related esophageal obstruction related to underlying esophageal carcinoma and edema from radiation therapy. 2. Dehydration. Electronically Signed By: TALIB HARO MD 02/05/21 1035 PATIENT NAME: MARCELINA VICKERS DISCHARGE SUMMARY DATE OF : 67 REPORT #: [id number] PHYSICIAN: TALIB HARO MD PCP: LAMONT VIVAS MD REPORT IS CONFIDENTIAL AND NOT TO BE RELEASED WITHOUT AUTHORIZATION [facility] [address] [place] [address] Signed 3. Status post placement of open gastrostomy tube. 4. Placement of left subclavian Port-A-Cath device. FOLLOW-UP PLANS: He will return to see Dr. Stacy and Jazmyne in the near term, I am happy to see him as needed otherwise. Wound care instructions have been given to him. He will follow up with Dr. Vivas and his primary provider as well. MD ADILENE Dunbar/ESTEPHANIA /[id number] cc: Deyvi Stacy MD, PH.D. MD Lamont Mcallister MD Copies: DEYVI STACY ROBERT C MD HITZMAN, JONATHAN MD ~ Electronically Signed By: TALIB HARO MD 02/05/21 1035 PATIENT NAME: MARCELINA VICKERS DISCHARGE SUMMARY DATE OF : 67 REPORT #: [id number] PHYSICIAN: TALIB HAOR MD PCP: LAMONT VIVAS MD REPORT IS CONFIDENTIAL AND NOT TO BE RELEASED WITHOUT AUTHORIZATION
== END 2021-01-25 11:15 | disposition home or self-care (01) | DRG 357 ==
LOC: MS 13:46
PROVIDERS: ADMIT Surgery; ATTEND Surgery
PROC: 0DH63UZ Insertion of Feeding Device into Stomach, Percutaneous Approach (ICD-10-PCS; 2021-01-23)
PROC: 0DJ08ZZ Inspection of Upper Intestinal Tract, Via Natural or Artificial Opening Endoscopic (ICD-10-PCS; 2021-01-23)
PROC: 02HV33Z Insertion of Infusion Device into Superior Vena Cava, Percutaneous Approach (ICD-10-PCS; 2021-01-24)
PROC: B518ZZA Fluoroscopy of Superior Vena Cava, Guidance (ICD-10-PCS; 2021-01-24)
PROC: 0JH60WZ Insertion of Totally Implantable Vascular Access Device into Chest Subcutaneous Tissue and Fascia, Open Approach (ICD-10-PCS; principal; 2021-01-24 08:00)
PROC: 3E0G76Z Introduction of Nutritional Substance into Upper GI, Via Natural or Artificial Opening (ICD-10-PCS; 2021-01-25)
DX: C15.5 Malignant neoplasm of lower third of esophagus (principal); C78.7 Secondary malignant neoplasm of liver and intrahepatic bile duct; C77.2 Secondary and unspecified malignant neoplasm of intra-abdominal lymph nodes; C78.1 Secondary malignant neoplasm of mediastinum; K22.2 Esophageal obstruction; Z20.822 Contact with and (suspected) exposure to COVID-19; E86.0 Dehydration; I10 Essential (primary) hypertension; Z79.899 Other long term (current) drug therapy; Z92.3 Personal history of irradiation
CPT/HCPCS: 00532; 71045; 77001; 80048; 80053; 85025; C1788; C9803; J0131; J0690; J1100; J1170; J1200; J1644; J1885; J2270; J2704; J3010; J7121; U0003